=== PATIENT | male | born 1965 | race Caucasian/White ===

== ENCOUNTER 2018-04-10 20:12 | Inpatient (IN) | payer OTHER ==
[~2018-04-10] VITALS: Ht 175.3 cm; Wt 136.2 kg
[~2018-04-10 20:12] MED LIST: ASPI-817 PO; ATOR40TA68 PO; CARV6.2579 PO; CLOP75TA19 PO; CLOP75TA27 PO; FOLI-49 PO; HYDR-906 PO; IBUP-1542 PO; LISI2.5T59 PO; METF500T24 PO; TRAM50TA PO
[2018-04-10] MEDS ORDERED: SOD CHLORIDE 0.9% 1,000 ML IV SCH (22:34)
[2018-04-10] MEDS ORDERED: ACETAMINOPHEN 325 MG TAB PO PRN (23:00)
[2018-04-10] MEDS ORDERED: ONDANSETRON 4 MG INJ IV PRN (23:00)
[2018-04-10] MEDS ORDERED: GLUCOSE GEL 15 GRAM TUBE PO PRN ×2 (23:00)
[2018-04-10] MEDS ORDERED: NACL 0.9% 3 ML SYG IV SCH (23:00)
[2018-04-10] MEDS ORDERED: GLUCOSE GEL 15 GRAM TUBE BUCCAL PRN (23:00)
[2018-04-10] MEDS ORDERED: GLUCAGON 1 MG INJ IM PRN (23:00)
[2018-04-10] MEDS ORDERED: DEXTROSE 50% 50 ML SYRINGE IV PRN ×2 (23:00)
[2018-04-10] MEDS: HYDROCODONE/APAP (5/325) TAB PO PRN (23:23)
[2018-04-10] MEDS: PIPER-TAZO 3.375 GM IV (PMX) 100 ML IVPB SCH (23:55)
[2018-04-11 00:18] VITALS: Ht 175.3 cm; Wt 136.2 kg
[2018-04-11] MEDS: morphine 2 MG INJ IV PRN ×4 (00:55→17:06)
[2018-04-11] MEDS: ACCU-CHEK XX SCH (01:59)
[2018-04-11 02:05] VITALS: BP 117/55; PULSE 71; RESP 20
--- NOTE | 2018-04-11 02:17 | HP ---
Date/Time of Note Date/Time of Note DATE: 04/11/18 TIME: 02:17 Assessment/Plan VTE Prophylaxis Pharmacological prophylaxis: other Lines/Catheters IV Catheter Type (from Nrsg): Peripheral IV Assessment/Plan Hospital Course Objective Physical exam General: Patient is laying in bed and answers questions appropriately Mentation: Patient is alert and oriented 4, Head: Normocephalic atraumatic Eyes: EOMI, pupils reactive to light Neck: Supple, nontender, midline Respiratory: Clear to auscultation bilaterally Cardiovascular: regular rate, no obvious murmurs Gastrointestinal: non-tender to palpation, bowel sounds heard. Neurological: Moves all extremities spontaneously Genitourinary: Discrete mass palpated adjacent to left testicle and scrotum Assessment and plan Left scrotal abscess -Urology has been consulted, has not confirmed consult as of yet -IV antibiotic for now -per outside facility CT with iv contrast,, 6.5x2.1x3.7 cm mass Coronary artery disease -Confirmed patient med list, continue home meds, however hold aspirin in anticipation of possible surgical procedure per urology. Diabetes mellitus -Patient is only on metformin however I believe that his diabetes is not under control, A1c pending, insulin sliding scale for now Hypertension -Continue home meds Disposition -Urology consultation pending for scrotal/testicular abscess Result Diagram: 04/10/18232604/10/182326 Results 24hrs Laboratory Tests Test 04/10/18 23:27 White Blood Count 11.3 H Red Blood Count 4.61 L Hemoglobin 13.7 L Hematocrit 40.2 L Mean Corpuscular Volume 87.2 Mean Corpuscular Hemoglobin 29.7 Mean Corpuscular Hemoglobin Concent 34.1 Red Cell Distribution Width 13.7 Platelet Count 254 Mean Platelet Volume 9.9 Immature Granulocytes % 0.500 H Neutrophils % 65.7 Lymphocytes % 24.7 Monocytes % 7.2 Eosinophils % 1.5 Basophils % 0.4 Nucleated Red Blood Cells % 0.0 Immature Granulocytes # 0.060 H Neutrophils # 7.4 Lymphocytes # 2.8 Monocytes # 0.8 Eosinophils # 0.2 Basophils # 0.1 Nucleated Red Blood Cells # 0.0 Sodium Level 137 Potassium Level 3.9 Chloride Level 98 Carbon Dioxide Level 28 Anion Gap 11 Blood Urea Nitrogen 11 Creatinine 0.41 L Est Glomerular Filtrat Rate mL/min > 60 Glucose Level 299 H Calcium Level 9.0 Total Bilirubin 0.3 Direct Bilirubin 0.00 Indirect Bilirubin 0.3 Aspartate Amino Transf (AST/SGOT) 24 Alanine Aminotransferase (ALT/SGPT) 40 Alkaline Phosphatase 123 H Total Protein 6.8 Albumin 3.7 Globulin 3.10 Albumin/Globulin Ratio 1.19 HPI/ROS Admit Date/Time Admit Date/Time Apr 10, 2018 at 22:19 Hx of Present Illness Patient is a male with a past medical history significant for NM, coronary artery disease,, diabetes mellitus, dyslipidemia who presents to [facility] as a transfer from outside facility. She did went to outside facility ER due to testicular pain and was diagnosed with CT with IV contrast there with an extratesticular abscess adjacent to the left testicle. Patient states that this has been there for approximately 1 week and has been worsening. Patient states it started off as a small pimple and then continue to grow and get hard. Patient has no issues with urination at this time. The p atient does have a genetic predisposition to forming skin abscesses as he states that in his underarms he does get the occasional abscess. Patient denies chest pain, shortness of breath, nausea, vomiting, abdominal pain, leg pain PMH/Family/Social Past Medical History Medications Current Medications Sodium Chloride 1,000 ml @ 50 mls/hr Q20H IV Last administered on 04/10/18at 23:16; Admin Dose 50 MLS/HR; Start 04/10/18 at 22:34; Stop 04/11/18 at 18:33 IV Flush (NS 3 ml) 3 ml PER PROTOCOL IV ; Start 04/10/18 at 23:00 Ondansetron HCl (Zofran Inj) 4 mg Q6H PRN IV NAUSEA/VOMITING; Start 04/10/18 at 23:00 Acetaminophen (Tylenol Tab) 650 mg Q6H PRN PO .PAIN 1-3 OR TEMP; Start 04/10/18 at 23:00 Acetaminophen/ Hydrocodone Bitart ([place] (5/325)) 1 tab Q6H PRN PO .PAIN 4-6 Last administered on 04/10/18at 23:23; Admin Dose 1 TAB; Start 04/10/18 at 23:00 Morphine Sulfate (morphine) 2 mg Q4H PRN IV .PAIN 7-10 Last administered on 04/11/18at 00:55; Admin Dose 2 MG; Start 04/10/18 at 23:00 Diagnostic Test (Pha) (Accu-Chek) 1 ea 02 XX ; Start 04/11/18 at 02:00 Insulin Aspart (Novolog Insulin Pen) NOVOLOG *MILD* ALGORITHM WITH MEALS BEDTIME SC ; Start 04/11/18 at 07:50 Piperacillin Sod/ Tazobactam Sod 100 ml @ 200 mls/hr Q6 IVPB Last administered on 04/10/18at 23:55; Admin Dose 200 MLS/HR; Start 04/11/18 at 00:00 Miscellaneous Information 1 ea NOTE XX ; Start 04/10/18 at 23:00 Glucose (Glutose) 15 gm Q15M PRN PO DECREASED GLUCOSE; Start 04/10/18 at 23:00 Glucose (Glutose) 22.5 gm Q15M PRN PO DECREASED GLUCOSE; Start 04/10/18 at 23:00 Dextrose (D50w Syringe) 25 ml Q15M PRN IV DECREASED GLUCOSE; Start 04/10/18 at 23:00 Dextrose (D50w Syringe) 50 ml Q15M PRN IV DECREASED GLUCOSE; Start 04/10/18 at 23:00 Glucagon (Glucagen) 1 mg Q15M PRN IM DECREASED GLUCOSE; Start 04/10/18 at 23:00 Glucose (Glutose) 15 gm Q15M PRN BUCCAL DECREASED GLUCOSE; Start 04/10/18 at 23:00 Atorvastatin Calcium (Lipitor) 80 mg QHS PO ; Start 04/11/18 at 21:00 Carvedilol (Coreg) 6.25 mg BID PO ; Start 04/11/18 at 09:00 Lisinopril (Zestril) 5 mg DAILY PO ; Start 04/11/18 at 09:00 Coded Allergies: No Known Allergy (Unverified , 11/28/15) Exam/Review of Systems Vital Signs Vitals Intake and Output 04/10/18 04/10/18 04/11/18 1515:00 23:00 07:00 IntakeIntake Total 100 ml BalanceBalance 100 ml MOHSEN CROCKETT Apr 11, 2018 02:17
[2018-04-11] MEDS ORDERED: INSULIN ASPART [NOVOLOG] 3 ML PEN SC ONE ×2 (02:30→02:45)
[2018-04-11] MEDS: PIPER-TAZO 3.375 GM IV (PMX) 100 ML IVPB SCH ×4 (05:58→23:48)
[2018-04-11 07:11] VITALS: BP 107/57; PULSE 68; RESP 17
[2018-04-11] MEDS: INSULIN GLARGINE [LANTus] (100 UNITS/ML) SYG SC SCH ×2 (08:00→10:53)
[2018-04-11] MEDS: INSULIN ASPART [NOVOLOG] 3 ML PEN SC SCH ×7 (08:36→21:09)
[2018-04-11] MEDS: LISINOPRIL 5 MG TAB PO SCH (08:38)
[2018-04-11] MEDS ORDERED: ASPIRIN (EC) 81 MG TAB PO SCH (09:00)
[2018-04-11] MEDS: HYDROCODONE/APAP (5/325) TAB PO PRN ×3 (10:55→23:48)
--- NOTE | 2018-04-11 11:13 | CONS ---
Assessment/Plan Assessment/Plan Hospital Course (Demo Recall) 52-year-old male has been having left side scrotal pain for about a week he had a small area that was painful and gradually got bigger and became very painful so he went to the emergency room at [facility]. He underwent a scrotal ultrasound and a CT scan of the abdomen and pelvis and that showed possible abscess lateral to the left testicle. The patient was transferred to [facility] because of his insurance. Patient state he did have similar problem before and also has had similar lumps in his axilla. And other members of his family do have the same. On the exam the abscess is lateral to the left testicle. It most likely is hidradenitis versus infected sebaceous cyst. He will need this to be drained and since he has had a history of heart attack and stents placement he needs cardiology clearance. Also his diabetes is out of control and needs to be managed. I will try to schedule him for I&D tomorrow Consultation Date/Type/Reason Admit Date/Time Apr 10, 2018 at 22:19 Date of Consultation: Apr 11, 2018 Type of Consult Urology Reason for Consultation Left scrotal abscess Requesting Provider: MOHSEN CROCKETT Date/Time of Note DATE: 04/11/18 TIME: 10:57 Hx of Present Illness 52-year-old male has been having left side scrotal pain for about a week he had a small area that was painful and gradually got bigger and became very painful so he went to the emergency room at [facility]. He underwent a scrotal ultrasound and a CT scan of the abdomen and pelvis and that showed possible abscess lateral to the left testicle. The patient was transferred to [facility] because of his insurance. Patient state he did have similar problem before and also has had similar lumps in his axilla. And other members of his family do have the same. Constitutional: no complaints Eyes: no complaints ENT: no complaints Respiratory: No wheezing Cardiovascular: other (History of AK); No chest pain Gastrointestinal: no complaints Genitourinary: other (As per history of present illness); No dysuria, No hematuria Musculoskeletal: no complaints Skin: no complaints Neurologic: no complaints Endocrine: other (Diabetes) Lymphatic: no complaints Psychological: no complaints Immunologic: no complaints Past Medical History Medical History: coronary artery disease (History of AK, coronary stent at age 47 and another stent at age 46), diabetes, high cholesterol, hypertension, other (History of psoriasis and hidradenitis) Home Meds Active Scripts Hydrocodone Bit-Acetaminophen ([place]) 5-325 Mg Tablet, 1 TAB PO Q6H PRN for PAIN for 2 Days, #7 TAB 0 Refills Prov:KAYLA RUSSELL PA-C 08/05/15 Ibuprofen* (Motrin*) 600 Mg Tab, 600 MG PO Q6 for 7 Days, #30 TAB 0 Refills Prov:KAYLA RUSSELL PA-C 08/05/15 Reported Medications Atorvastatin* (Atorvastatin*) 40 Mg Tablet, 80 MG PO QHS, #30 TAB 11/27/15 Lisinopril* (Lisinopril*) 2.5 Mg Tablet, 5 MG PO DAILY, #30 TAB 11/27/15 Carvedilol* (Carvedilol*) 6.25 Mg Tablet, 6.25 MG PO BID, #60 TAB 11/27/15 Metformin Hcl* (Metformin Hcl*) 500 Mg Tablet, 500 MG PO BID, #90 TAB 11/27/15 Aspirin* (Aspirin* EC) 81 Mg Tablet.dr, 81 MG PO DAILY, TAB 11/27/15 Discontinued Reported Medications Tramadol Hcl* (Ultram*) 50 Mg Tablet, 50 MG PO BID, TAB 11/28/15 Clopidogrel Bisulfate (Clopidogrel) 75 Mg Tablet, 75 MG PO DAILY, #30 TAB 11/28/15 Folic Acid* (Folic Acid*) 1 Mg Tablet, 1 MG PO DAILY, TAB 11/27/15 Clopidogrel Bisulfate* (Clopidogrel Bisulfate*) 75 Mg Tablet, 75 MG PO DAILY, #30 TAB 11/27/15 Medications Current Medications Sodium Chloride 1,000 ml @ 50 mls/hr Q20H IV Last administered on 04/10/18at 23:16; Admin Dose 50 MLS/HR; Start 04/10/18 at 22:34; Stop 04/11/18 at 18:33 IV Flush (NS 3 ml) 3 ml PER PROTOCOL IV ; Start 04/10/18 at 23:00 Ondansetron HCl (Zofran Inj) 4 mg Q6H PRN IV NAUSEA/VOMITING; Start 04/10/18 at 23:00 Acetaminophen (Tylenol Tab) 650 mg Q6H PRN PO .PAIN 1-3 OR TEMP; Start 04/10/18 at 23:00 Acetaminophen/ Hydrocodone Bitart ([place] (5/325)) 1 tab Q6H PRN PO .PAIN 4-6 Last administered on 04/11/18at 10:55; Admin Dose 1 TAB; Start 04/10/18 at 23:00 Morphine Sulfate (morphine) 2 mg Q4H PRN IV .PAIN 7-10 Last administered on 04/11/18at 08:41; Admin Dose 2 MG; Start 04/10/18 at 23:00 Diagnostic Test (Pha) (Accu-Chek) 1 ea 02 XX ; Start 04/11/18 at 02:00 Insulin Aspart (Novolog Insulin Pen) NOVOLOG *MILD* ALGORITHM WITH MEALS BEDTIME SC Last administered on 04/11/18at 08:36; Admin Dose 5 UNIT; Start 04/11/18 at 07:50 Piperacillin Sod/ Tazobactam Sod 100 ml @ 200 mls/hr Q6 IVPB Last administered on 04/11/18at 05:58; Admin Dose 200 MLS/HR; Start 04/11/18 at 00:00 Miscellaneous Information 1 ea NOTE XX ; Start 04/10/18 at 23:00 Glucose (Glutose) 15 gm Q15M PRN PO DECREASED GLUCOSE; Start 04/10/18 at 23:00 Glucose (Glutose) 22.5 gm Q15M PRN PO DECREASED GLUCOSE; Start 04/10/18 at 23:00 Dextrose (D50w Syringe) 25 ml Q15M PRN IV DECREASED GLUCOSE; Start 04/10/18 at 23:00 Dextrose (D50w Syringe) 50 ml Q15M PRN IV DECREASED GLUCOSE; Start 04/10/18 at 23:00 Glucagon (Glucagen) 1 mg Q15M PRN IM DECREASED GLUCOSE; Start 04/10/18 at 23:00 Glucose (Glutose) 15 gm Q15M PRN BUCCAL DECREASED GLUCOSE; Start 04/10/18 at 23:00 Atorvastatin Calcium (Lipitor) 80 mg QHS PO ; Start 04/11/18 at 21:00 Carvedilol (Coreg) 6.25 mg BID PO ; Start 04/11/18 at 09:00 Lisinopril (Zestril) 5 mg DAILY PO ; Start 04/11/18 at 09:00 Insulin Glargine (Lantus) 34 units DAILY@0800 SC Last administered on 04/11/18at 10:53; Admin Dose 34 UNITS; Start 04/11/18 at 08:00 Insulin Aspart (Novolog Insulin Pen) 11 unit WITH MEALS SC Last administered on 04/11/18at 08:37; Admin Dose 11 UNIT; Start 04/11/18 at 07:50 Allergies: Coded Allergies: No Known Allergy (Unverified , 11/28/15) Past Surgical History Past Surgical Hx: other (Left knee arthroscopy) Family History Significant Family History: heart disease Social History Alcohol Use: none Smoking Status: Never smoker Drug Use: none Exam/Review of Systems Exam Vitals Vital Signs Date Temp Pulse Resp B/P (MAP) Pulse Ox O2 O2 Flow FiO2 Time Delivery Rate 04/11/18 97.7 68 17 107/57 99 Room Air 07:11 (74) Intake and Output 04/10/18 04/10/18 04/11/18 1515:00 23:00 07:00 IntakeIntake Total 1100 ml OutputOutput Total 503 ml BalanceBalance 597 ml Constitutional: alert, oriented Psych: no complaints Head: normocephalic Eyes: nl conjunctiva ENMT: nl external ears & nose Neck: supple, non-tender Respiratory: normal air movement; No wheezing Cardiovascular: No jugular venous distention (JVD) Gastrointestinal: soft, other (Obese) Genitourinary - Male: nl penis, other (Both testes are normal, the mass is lateral to the left testicle and has fluctuation toward the perineal area. It appears like an infected sebaceous cyst.) Musculoskeletal: nl extremities to inspection Extremities: No calf tenderness Neurological: nl mental status Skin: nl turgor Results Result Diagram: 04/11/18 04304/11/18 0432 Results 24hrs Laboratory Tests Test 04/10/18 23:27 04/11/18 02:11 04/11/18 02:31 04/11/18 04:32 White Blood Count 11.3 H 10.9 H Red Blood Count 4.61 L 4.29 L Hemoglobin 13.7 L 12.7 L Hematocrit 40.2 L 37.9 L Mean Corpuscular 87.2 88.3 Volume Mean Corpuscular 29.7 29.6 Hemoglobin Mean Corpuscular 34.1 33.5 Hemoglobin Concent Red Cell 13.7 13.6 Distribution Width Platelet Count 254 248 Mean Platelet Volume 9.9 10.3 Immature 0.500 H 0.600 H Granulocytes % Neutrophils % 65.7 67.3 Lymphocytes % 24.7 23.6 Monocytes % 7.2 6.7 Eosinophils % 1.5 1.3 Basophils % 0.4 0.5 Nucleated Red Blood 0.0 0.0 Cells % Immature 0.060 H 0.070 H Granulocytes # Neutrophils # 7.4 7.3 Lymphocytes # 2.8 2.6 Monocytes # 0.8 0.7 Eosinophils # 0.2 0.1 Basophils # 0.1 0.1 Nucleated Red Blood 0.0 0.0 Cells # Sodium Level 137 136 Potassium Level 3.9 3.7 Chloride Level 98 102 Carbon Dioxide Level 28 27 Anion Gap 11 7 Blood Urea Nitrogen 11 12 Creatinine 0.41 L 0.42 L Est Glomerular > 60 > 60 Filtrat Rate mL/min Glucose Level 299 H 393 H 322 H Calcium Level 9.0 8.7 Total Bilirubin 0.3 0.1 L Direct Bilirubin 0.00 0.00 Indirect Bilirubin 0.3 0.1 Aspartate Amino 24 24 Transf (AST/SGOT) Alanine 40 35 Aminotransferase (AL T/SGPT) Alkaline Phosphatase 123 H 123 H Total Protein 6.8 5.9 L Albumin 3.7 3.1 L Globulin 3.10 2.80 Albumin/Globulin 1.19 1.10 Ratio Bedside Glucose 386 H Hemoglobin A1c 11.5 H Magnesium Level 1.8 Test 04/11/18 08:15 Bedside Glucose [address] scan of the abdomen and pelvis with IV contrast: No evidence of urolithiasis ,no evidence of obstructive uropathy ,diverticulitis or appendicitis. 6.5 x 2.1 x 3.7 cm extra testicular collection left taylor-scrotum compatible with abscess. Medications Medication Current Medications Sodium Chloride 1,000 ml @ 50 mls/hr Q20H IV Last administered on 04/10/18at 23:16; Admin Dose 50 MLS/HR; Start 04/10/18 at 22:34; Stop 04/11/18 at 18:33 IV Flush (NS 3 ml) 3 ml PER PROTOCOL IV ; Start 04/10/18 at 23:00 Ondansetron HCl (Zofran Inj) 4 mg Q6H PRN IV NAUSEA/VOMITING; Start 04/10/18 at 23:00 Acetaminophen (Tylenol Tab) 650 mg Q6H PRN PO .PAIN 1-3 OR TEMP; Start 04/10/18 at 23:00 Acetaminophen/ Hydrocodone Bitart ([place] (5/325)) 1 tab Q6H PRN PO .PAIN 4-6 Last administered on 04/11/18at 10:55; Admin Dose 1 TAB; Start 04/10/18 at 23:00 Morphine Sulfate (morphine) 2 mg Q4H PRN IV .PAIN 7-10 Last administered on 04/11/18at 08:41; Admin Dose 2 MG; Start 04/10/18 at 23:00 Diagnostic Test (Pha) (Accu-Chek) 1 ea 02 XX ; Start 04/11/18 at 02:00 Insulin Aspart (Novolog Insulin Pen) NOVOLOG *MILD* ALGORITHM WITH MEALS BEDTIME SC Last administered on 04/11/18at 08:36; Admin Dose 5 UNIT; Start 04/11/18 at 07:50 Piperacillin Sod/ Tazobactam Sod 100 ml @ 200 mls/hr Q6 IVPB Last administered on 04/11/18at 05:58; Admin Dose 200 MLS/HR; Start 04/11/18 at 00:00 Miscellaneous Information 1 ea NOTE XX ; Start 04/10/18 at 23:00 Glucose (Glutose) 15 gm Q15M PRN PO DECREASED GLUCOSE; Start 04/10/18 at 23:00 Glucose (Glutose) 22.5 gm Q15M PRN PO DECREASED GLUCOSE; Start 04/10/18 at 23:00 Dextrose (D50w Syringe) 25 ml Q15M PRN IV DECREASED GLUCOSE; Start 04/10/18 at 23:00 Dextrose (D50w Syringe) 50 ml Q15M PRN IV DECREASED GLUCOSE; Start 04/10/18 at 23:00 Glucagon (Glucagen) 1 mg Q15M PRN IM DECREASED GLUCOSE; Start 04/10/18 at 23:00 Glucose (Glutose) 15 gm Q15M PRN BUCCAL DECREASED GLUCOSE; Start 04/10/18 at 23:00 Atorvastatin Calcium (Lipitor) 80 mg QHS PO ; Start 04/11/18 at 21:00 Carvedilol (Coreg) 6.25 mg BID PO ; Start 04/11/18 at 09:00 Lisinopril (Zestril) 5 mg DAILY PO ; Start 04/11/18 at 09:00 Insulin Glargine (Lantus) 34 units DAILY@0800 SC Last administered on 04/11/18at 10:53; Admin Dose 34 UNITS; Start 04/11/18 at 08:00 Insulin Aspart (Novolog Insulin Pen) 11 unit WITH MEALS SC Last administered on 04/11/18at 08:37; Admin Dose 11 UNIT; Start 04/11/18 at 07:50 GEN BERMUDEZ MD Apr 11, 2018 11:10
[2018-04-11 14:38] VITALS: BP 123/59; PULSE 72; RESP 17
--- NOTE | 2018-04-11 16:09 | CONS ---
Assessment/Plan Assessment/Plan Hospital Course (Demo Recall) Cardiovascular preop evaluation Coronary artery disease with history of [place] 3 years ago History of PCI 3 years ago Hypertension Diabetes Obesity Dyslipidemia Scrotal abscess Recommendations: Continue with the current cardiac care No further cardiac workup would be indicated. Based on the history that obtained from the patient patient will be considered at low risk of cardiovascular event for his a scrotal I&D Diabetic management as per internal medicine. Antibiotic management as per internal medicine Thank you for his referral. We will continue to follow along with you until or associates return on Thursday KARIE MALONEY MD FAC Consultation Date/Type/Reason Admit Date/Time Apr 10, 2018 at 22:19 Date of Consultation: Apr 11, 2018 Type of Consult Cardiology Reason for Consultation CV PREOP Requesting Provider: ARNAUD HANSON Date/Time of Note DATE: 04/11/18 TIME: 16:04 Hx of Present Illness Interventional cardiology consultation note Chief complaint: Testicular pain Reason for consult: Cardiovascular preop evaluation, coronary artery disease History of present illness: Thank you for this referral. History was obtained from the patient discussion with his discussion with the staff and physicians. This is a pleasant 52-year-old gentleman with history of diabetes hypertension dyslipidemia history of myocardial infarction 3 years ago status post PCI who was transferred to our facility for insurance reason because of his scrotal abscess. Patient has been evaluated by urology and is in need of I&D of his abscess. With his past cardiac history cardiovascular preop evaluation was requested. Patient said that he is normally followed regularly by . He said he had a stress test on a month ago in which was told he is normal and he needs to come back in 6 months. Is unable to walk much over the past week because of the pain in his groin. However prior to that he said he was able to walk 3-4 blocks with no chest pain or pressure at this point denies any chest pain or pressure to me. Allergies: No known drug allergies Medications were reviewed as per medical reconciliation sheet Family history: Denies any coronary artery disease Social history: Does not smoke now Past medical history: See above Review of system: Patient denies all others except for above-mentioned Past Medical History Home Meds Active Scripts Hydrocodone Bit-Acetaminophen ([place]) 5-325 Mg Tablet, 1 TAB PO Q6H PRN for PAIN for 2 Days, #7 TAB 0 Refills Prov:KAYLA RUSSELL PA-C 08/05/15 Ibuprofen* (Motrin*) 600 Mg Tab, 600 MG PO Q6 for 7 Days, #30 TAB 0 Refills Prov:KAYLA RUSSELL PA-C 08/05/15 Reported Medications Atorvastatin* (Atorvastatin*) 40 Mg Tablet, 80 MG PO QHS, #30 TAB 11/27/15 Lisinopril* (Lisinopril*) 2.5 Mg Tablet, 5 MG PO DAILY, #30 TAB 11/27/15 Carvedilol* (Carvedilol*) 6.25 Mg Tablet, 6.25 MG PO BID, #60 TAB 11/27/15 Metformin Hcl* (Metformin Hcl*) 500 Mg Tablet, 500 MG PO BID, #90 TAB 11/27/15 Aspirin* (Aspirin* EC) 81 Mg Tablet.dr, 81 MG PO DAILY, TAB 11/27/15 Discontinued Reported Medications Tramadol Hcl* (Ultram*) 50 Mg Tablet, 50 MG PO BID, TAB 11/28/15 Clopidogrel Bisulfate (Clopidogrel) 75 Mg Tablet, 75 MG PO DAILY, #30 TAB 11/28/15 Folic Acid* (Folic Acid*) 1 Mg Tablet, 1 MG PO DAILY, TAB 11/27/15 Clopidogrel Bisulfate* (Clopidogrel Bisulfate*) 75 Mg Tablet, 75 MG PO DAILY, #30 TAB 11/27/15 Medications Current Medications Sodium Chloride 1,000 ml @ 50 mls/hr Q20H IV Last administered on 04/10/18at 23:16; Admin Dose 50 MLS/HR; Start 04/10/18 at 22:34; Stop 04/11/18 at 18:33 IV Flush (NS 3 ml) 3 ml PER PROTOCOL IV ; Start 04/10/18 at 23:00 Ondansetron HCl (Zofran Inj) 4 mg Q6H PRN IV NAUSEA/VOMITING; Start 04/10/18 at 23:00 Acetaminophen (Tylenol Tab) 650 mg Q6H PRN PO .PAIN 1-3 OR TEMP; Start 04/10/18 at 23:00 Acetaminophen/ Hydrocodone Bitart ([place] (5/325)) 1 tab Q6H PRN PO .PAIN 4-6 Last administered on 04/11/18at 10:55; Admin Dose 1 TAB; Start 04/10/18 at 23:00 Morphine Sulfate (morphine) 2 mg Q4H PRN IV .PAIN 7-10 Last administered on 04/11/18at 12:52; Admin Dose 2 MG; Start 04/10/18 at 23:00 Diagnostic Test (Pha) (Accu-Chek) 1 ea 02 XX ; Start 04/11/18 at 02:00 Insulin Aspart (Novolog Insulin Pen) NOVOLOG *MILD* ALGORITHM WITH MEALS BEDTIME SC Last administered on 04/11/18at 12:56; Admin Dose 4 UNIT; Start 04/11/18 at 07:50 Piperacillin Sod/ Tazobactam Sod 100 ml @ 200 mls/hr Q6 IVPB Last administered on 04/11/18at 12:57; Admin Dose 200 MLS/HR; Start 04/11/18 at 00:00 Miscellaneous Information 1 ea NOTE XX ; Start 04/10/18 at 23:00 Glucose (Glutose) 15 gm Q15M PRN PO DECREASED GLUCOSE; Start 04/10/18 at 23:00 Glucose (Glutose) 22.5 gm Q15M PRN PO DECREASED GLUCOSE; Start 04/10/18 at 23:00 Dextrose (D50w Syringe) 25 ml Q15M PRN IV DECREASED GLUCOSE; Start 04/10/18 at 23:00 Dextrose (D50w Syringe) 50 ml Q15M PRN IV DECREASED GLUCOSE; Start 04/10/18 at 23:00 Glucagon (Glucagen) 1 mg Q15M PRN IM DECREASED GLUCOSE; Start 04/10/18 at 23:00 Glucose (Glutose) 15 gm Q15M PRN BUCCAL DECREASED GLUCOSE; Start 04/10/18 at 23:00 Atorvastatin Calcium (Lipitor) 80 mg QHS PO ; Start 04/11/18 at 21:00 Carvedilol (Coreg) 6.25 mg BID PO ; Start 04/11/18 at 09:00 Lisinopril (Zestril) 5 mg DAILY PO ; Start 04/11/18 at 09:00 Insulin Glargine (Lantus) 34 units DAILY@0800 SC Last administered on 04/11/18at 10:53; Admin Dose 34 UNITS; Start 04/11/18 at 08:00 Insulin Aspart (Novolog Insulin Pen) 11 unit WITH MEALS SC Last administered on 04/11/18at 12:57; Admin Dose 11 UNIT; Start 04/11/18 at 07:50 Allergies: Coded Allergies: No Known Allergy (Unverified , 11/28/15) Past Surgical History Past Surgical Hx: other (Left knee arthroscopy) Social History Alcohol Use: none Smoking Status: Never smoker Drug Use: none Exam/Review of Systems Vital Signs Vitals Vital Signs Date Temp Pulse Resp B/P (MAP) Pulse Ox O2 O2 Flow FiO2 Time Delivery Rate 04/11/18 97.9 72 17 123/59 96 Room Air 14:38 (80) Intake and Output 04/10/18 04/10/18 04/11/18 1515:00 23:00 07:00 IntakeIntake Total 1100 ml OutputOutput Total 503 ml BalanceBalance 597 ml Exam Exam General: Obese gentleman no acute distress HEENT: NC/AT. pupils are equal. round. NECK: NO JVD. no stridor. CV: RRR. systolic murmur; no gallop or rubs. PULM: no wheezing or rhonchi. GI: SOFT, NT, ND, no rebound or guarding Extremity: trace B/L LE edema. no clubbing. neuro: awake and alert, OX3. Psych: calm and pleasant rectal: deferred : + Tenderness and abscess on the scrotum EKG normal sinus rhythm normal ECG Labs Result Diagram: 04/11/18 0432 04/11/18 0432 Results 24hrs Laboratory Tests Test 04/10/18 23:27 04/11/18 02:11 04/11/18 02:31 04/11/18 04:32 White Blood Count 11.3 H 10.9 H Red Blood Count 4.61 L 4.29 L Hemoglobin 13.7 L 12.7 L Hematocrit 40.2 L 37.9 L Mean Corpuscular 87.2 88.3 Volume Mean Corpuscular 29.7 29.6 Hemoglobin Mean Corpuscular 34.1 33.5 Hemoglobin Concent Red Cell 13.7 13.6 Distribution Width Platelet Count 254 248 Mean Platelet Volume 9.9 10.3 Immature 0.500 H 0.600 H Granulocytes % Neutrophils % 65.7 67.3 Lymphocytes % 24.7 23.6 Monocytes % 7.2 6.7 Eosinophils % 1.5 1.3 Basophils % 0.4 0.5 Nucleated Red Blood 0.0 0.0 Cells % Immature 0.060 H 0.070 H Granulocytes # Neutrophils # 7.4 7.3 Lymphocytes # 2.8 2.6 Monocytes # 0.8 0.7 Eosinophils # 0.2 0.1 Basophils # 0.1 0.1 Nucleated Red Blood 0.0 0.0 Cells # Sodium Level 137 136 Potassium Level 3.9 3.7 Chloride Level 98 102 Carbon Dioxide Level 28 27 Anion Gap 11 7 Blood Urea Nitrogen 11 12 Creatinine 0.41 L 0.42 L Est Glomerular > 60 > 60 Filtrat Rate mL/min Glucose Level 299 H 393 H 322 H Calcium Level 9.0 8.7 Total Bilirubin 0.3 0.1 L Direct Bilirubin 0.00 0.00 Indirect Bilirubin 0.3 0.1 Aspartate Amino 24 24 Transf (AST/SGOT) Alanine 40 35 Aminotransferase (AL T/SGPT) Alkaline Phosphatase 123 H 123 H Total Protein 6.8 5.9 L Albumin 3.7 3.1 L Globulin 3.10 2.80 Albumin/Globulin 1.19 1.10 Ratio Bedside Glucose 386 H Hemoglobin A1c 11.5 H Magnesium Level 1.8 Test 04/11/18 08:15 04/11/18 12:30 04/11/18 12:50 Bedside Glucose 349 H 277 H Prothrombin Time 14.9 Prothrombin Time 1.2 Ratio INR International 1.16 Normalized Ratio Activated 30.8 Partial Thromboplast Time Medications Medications Current Medications Sodium Chloride 1,000 ml @ 50 mls/hr Q20H IV Last administered on 04/10/18at 23:16; Admin Dose 50 MLS/HR; Start 04/10/18 at 22:34; Stop 04/11/18 at 18:33 IV Flush (NS 3 ml) 3 ml PER PROTOCOL IV ; Start 04/10/18 at 23:00 Ondansetron HCl (Zofran Inj) 4 mg Q6H PRN IV NAUSEA/VOMITING; Start 04/10/18 at 23:00 Acetaminophen (Tylenol Tab) 650 mg Q6H PRN PO .PAIN 1-3 OR TEMP; Start 04/10/18 at 23:00 Acetaminophen/ Hydrocodone Bitart ([place] (5/325)) 1 tab Q6H PRN PO .PAIN 4-6 Last administered on 04/11/18at 10:55; Admin Dose 1 TAB; Start 04/10/18 at 23:00 Morphine Sulfate (morphine) 2 mg Q4H PRN IV .PAIN 7-10 Last administered on 04/11/18at 12:52; Admin Dose 2 MG; Start 04/10/18 at 23:00 Diagnostic Test (Pha) (Accu-Chek) 1 ea 02 XX ; Start 04/11/18 at 02:00 Insulin Aspart (Novolog Insulin Pen) NOVOLOG *MILD* ALGORITHM WITH MEALS BEDTIME SC Last administered on 04/11/18at 12:56; Admin Dose 4 UNIT; Start 04/11/18 at 07:50 Piperacillin Sod/ Tazobactam Sod 100 ml @ 200 mls/hr Q6 IVPB Last administered on 04/11/18at 12:57; Admin Dose 200 MLS/HR; Start 04/11/18 at 00:00 Miscellaneous Information 1 ea NOTE XX ; Start 04/10/18 at 23:00 Glucose (Glutose) 15 gm Q15M PRN PO DECREASED GLUCOSE; Start 04/10/18 at 23:00 Glucose (Glutose) 22.5 gm Q15M PRN PO DECREASED GLUCOSE; Start 04/10/18 at 23 :00 Dextrose (D50w Syringe) 25 ml Q15M PRN IV DECREASED GLUCOSE; Start 04/10/18 at 23:00 Dextrose (D50w Syringe) 50 ml Q15M PRN IV DECREASED GLUCOSE; Start 04/10/18 at 23:00 Glucagon (Glucagen) 1 mg Q15M PRN IM DECREASED GLUCOSE; Start 04/10/18 at 23:00 Glucose (Glutose) 15 gm Q15M PRN BUCCAL DECREASED GLUCOSE; Start 04/10/18 at 23:00 Atorvastatin Calcium (Lipitor) 80 mg QHS PO ; Start 04/11/18 at 21:00 Carvedilol (Coreg) 6.25 mg BID PO ; Start 04/11/18 at 09:00 Lisinopril (Zestril) 5 mg DAILY PO ; Start 04/11/18 at 09:00 Insulin Glargine (Lantus) 34 units DAILY@0800 SC Last administered on 04/11/18at 10:53; Admin Dose 34 UNITS; Start 04/11/18 at 08:00 Insulin Aspart (Novolog Insulin Pen) 11 unit WITH MEALS SC Last administered on 04/11/18at 12:57; Admin Dose 11 UNIT; Start 04/11/18 at 07:50 KARIE MALONEY MD Apr 11, 2018 16:09
--- NOTE | 2018-04-11 16:22 | PN ---
Date/Time of Note Date/Time of Note DATE: 04/11/18 TIME: 16:20 Assessment/Plan VTE Prophylaxis Risk score (from Ns)>0 risk: 1 SCD applied (from Ns): Yes Pharmacological prophylaxis: NA/contraindicated Pharm contraindication: surgical contra Lines/Catheters [facility]from [facility] Peripheral IV Urinary Cath still in place: No Assessment/Plan Hospital Course Left scrotal abscess -Urology consultation appreciated, plan is for I&D tomorrow -IV antibiotic for now -per outside facility CT with iv contrast,, 6.5x2.1x3.7 cm mass -Cardiology consultation obtained for clearance, patient deemed low risk for an I&D Coronary artery disease -Confirmed patient med list, continue home meds, however hold aspirin in anticipation of possible surgical procedure per urology. Diabetes mellitus -Patient is only on metformin however I believe that his diabetes is not under control, A1c pending, insulin sliding scale for now Hypertension -Continue home meds Prophylaxis: SCDs Result Diagram: 04/11/182 04/11/18 0432 Results 24hrs Laboratory Tests Test 04/10/18 23:27 04/11/18 02:11 04/11/18 02:31 04/11/18 04:32 White Blood Count 11.3 H 10.9 H Red Blood Count 4.61 L 4.29 L Hemoglobin 13.7 L 12.7 L Hematocrit 40.2 L 37.9 L Mean Corpuscular 87.2 88.3 Volume Mean Corpuscular 29.7 29.6 Hemoglobin Mean Corpuscular 34.1 33.5 Hemoglobin Concent Red Cell 13.7 13.6 Distribution Width Platelet Count 254 248 Mean Platelet Volume 9.9 10.3 Immature 0.500 H 0.600 H Granulocytes % Neutrophils % 65.7 67.3 Lymphocytes % 24.7 23.6 Monocytes % 7.2 6.7 Eosinophils % 1.5 1.3 Basophils % 0.4 0.5 Nucleated Red Blood 0.0 0.0 Cells % Immature 0.060 H 0.070 H Granulocytes # Neutrophils # 7.4 7.3 Lymphocytes # 2.8 2.6 Monocytes # 0.8 0.7 Eosinophils # 0.2 0.1 Basophils # 0.1 0.1 Nucleated Red Blood 0.0 0.0 Cells # Sodium Level 137 136 Potassium Level 3.9 3.7 Chloride Level 98 102 Carbon Dioxide Level 28 27 Anion Gap 11 7 Blood Urea Nitrogen 11 12 Creatinine 0.41 L 0.42 L Est Glomerular > 60 > 60 Filtrat Rate mL/min Glucose Level 299 H 393 H 322 H Calcium Level 9.0 8.7 Total Bilirubin 0.3 0.1 L Direct Bilirubin 0.00 0.00 Indirect Bilirubin 0.3 0.1 Aspartate Amino 24 24 Transf (AST/SGOT) Alanine 40 35 Aminotransferase (AL T/SGPT) Alkaline Phosphatase 123 H 123 H Total Protein 6.8 5.9 L Albumin 3.7 3.1 L Globulin 3.10 2.80 Albumin/Globulin 1.19 1.10 Ratio Bedside Glucose 386 H Hemoglobin A1c 11.5 H Magnesium Level 1.8 Test 04/11/18 08:15 04/11/18 12:30 04/11/18 12:50 Bedside Glucose 349 H 277 H Prothrombin Time 14.9 Prothrombin Time 1.2 Ratio INR International 1.16 Normalized Ratio Activated 30.8 Partial Thromboplast Time Subjective 24 Hr Interval Summary Constitutional: no complaints Exam/Review of Systems Exam Vitals Vital Signs Date Temp Pulse Resp B/P (MAP) Pulse Ox O2 O2 Flow FiO2 Time Delivery Rate 04/11/18 97.9 72 17 123/59 96 Room Air 14:38 (80) Intake and Output 04/10/18 04/10/18 04/11/18 1515:00 23:00 07:00 IntakeIntake Total 1100 ml OutputOutput Total 503 ml BalanceBalance 597 ml Constitutional: alert, oriented Respiratory: clear to auscultation Cardiovascular: regular rate and rhythm Gastrointestinal: soft; No distended Musculoskeletal: nl extremities to inspection Results Results 24hrs Laboratory Tests Test 04/10/18 23:27 04/11/18 02:11 04/11/18 02:31 04/11/18 04:32 White Blood Count 11.3 H 10.9 H Red Blood Count 4.61 L 4.29 L Hemoglobin 13.7 L 12.7 L Hematocrit 40.2 L 37.9 L Mean Corpuscular 87.2 88.3 Volume Mean Corpuscular 29.7 29.6 Hemoglobin Mean Corpuscular 34.1 33.5 Hemoglobin Concent Red Cell 13.7 13.6 Distribution Width Platelet Count 254 248 Mean Platelet Volume 9.9 10.3 Immature 0.500 H 0.600 H Granulocytes % Neutrophils % 65.7 67.3 Lymphocytes % 24.7 23.6 Monocytes % 7.2 6.7 Eosinophils % 1.5 1.3 Basophils % 0.4 0.5 Nucleated Red Blood 0.0 0.0 Cells % Immature 0.060 H 0.070 H Granulocytes # Neutrophils # 7.4 7.3 Lymphocytes # 2.8 2.6 Monocytes # 0.8 0.7 Eosinophils # 0.2 0.1 Basophils # 0.1 0.1 Nucleated Red Blood 0.0 0.0 Cells # Sodium Level 137 136 Potassium Level 3.9 3.7 Chloride Level 98 102 Carbon Dioxide Level 28 27 Anion Gap 11 7 Blood Urea Nitrogen 11 12 Creatinine 0.41 L 0.42 L Est Glomerular > 60 > 60 Filtrat Rate mL/min Glucose Level 299 H 393 H 322 H Calcium Level 9.0 8.7 Total Bilirubin 0.3 0.1 L Direct Bilirubin 0.00 0.00 Indirect Bilirubin 0.3 0.1 Aspartate Amino 24 24 Transf (AST/SGOT) Alanine 40 35 Aminotransferase (AL T/SGPT) Alkaline Phosphatase 123 H 123 H Total Protein 6.8 5.9 L Albumin 3.7 3.1 L Globulin 3.10 2.80 Albumin/Globulin 1.19 1.10 Ratio Bedside Glucose 386 H Hemoglobin A1c 11.5 H Magnesium Level 1.8 Test 04/11/18 08:15 04/11/18 12:30 04/11/18 12:50 Bedside Glucose 349 H 277 H Prothrombin Time 14.9 Prothrombin Time 1.2 Ratio INR International 1.16 Normalized Ratio Activated 30.8 Partial Thromboplast Time Medications Medication Current Medications Sodium Chloride 1,000 ml @ 50 mls/hr Q20H IV Last administered on 04/10/18at 23:16; Admin Dose 50 MLS/HR; Start 04/10/18 at 22:34; Stop 04/11/18 at 18:33 IV Flush (NS 3 ml) 3 ml PER PROTOCOL IV ; Start 04/10/18 at 23:00 Ondansetron HCl (Zofran Inj) 4 mg Q6H PRN IV NAUSEA/VOMITING; Start 04/10/18 at 23:00 Acetaminophen (Tylenol Tab) 650 mg Q6H PRN PO .PAIN 1-3 OR TEMP; Start 04/10/18 at 23:00 Acetaminophen/ Hydrocodone Bitart ([place] (5/325)) 1 tab Q6H PRN PO .PAIN 4-6 Last administered on 04/11/18at 10:55; Admin Dose 1 TAB; Start 04/10/18 at 23:00 Morphine Sulfate (morphine) 2 mg Q4H PRN IV .PAIN 7-10 Last administered on 04/11/18at 12:52; Admin Dose 2 MG; Start 04/10/18 at 23:00 Diagnostic Test (Pha) (Accu-Chek) 1 ea 02 XX ; Start 04/11/18 at 02:00 Insulin Aspart (Novolog Insulin Pen) NOVOLOG *MILD* ALGORITHM WITH MEALS BEDTIME SC Last administered on 04/11/18at 12:56; Admin Dose 4 UNIT; Start 04/11/18 at 07:50 Piperacillin Sod/ Tazobactam Sod 100 ml @ 200 mls/hr Q6 IVPB Last administered on 04/11/18at 12:57; Admin Dose 200 MLS/HR; Start 04/11/18 at 00:00 Miscellaneous Information 1 ea NOTE XX ; Start 04/10/18 at 23:00 Glucose (Glutose) 15 gm Q15M PRN PO DECREASED GLUCOSE; Start 04/10/18 at 23:00 Glucose (Glutose) 22.5 gm Q15M PRN PO DECREASED GLUCOSE; Start 04/10/18 at 23:00 Dextrose (D50w Syringe) 25 ml Q15M PRN IV DECREASED GLUCOSE; Start 04/10/18 at 23:00 Dextrose (D50w Syringe) 50 ml Q15M PRN IV DECREASED GLUCOSE; Start 04/10/18 at 23:00 Glucagon (Glucagen) 1 mg Q15M PRN IM DECREASED GLUCOSE; Start 04/10/18 at 23:00 Glucose (Glutose) 15 gm Q15M PRN BUCCAL DECREASED GLUCOSE; Start 04/10/18 at 23:00 Atorvastatin Calcium (Lipitor) 80 mg QHS PO ; Start 04/11/18 at 21:00 Carvedilol (Coreg) 6.25 mg BID PO ; Start 04/11/18 at 09:00 Lisinopril (Zestril) 5 mg DAILY PO ; Start 04/11/18 at 09:00 Insulin Glargine (Lantus) 34 units DAILY@0800 SC Last administered on 04/11/18at 10:53; Admin Dose 34 UNITS; Start 04/11/18 at 08:00 Insulin Aspart (Novolog Insulin Pen) 11 unit WITH MEALS SC Last administered on 04/11/18at 12:57; Admin Dose 11 UNIT; Start 04/11/18 at 07:50 ARNAUD HANSON Apr 11, 2018 16:22
[2018-04-11 20:12] VITALS: BP 128/59; PULSE 77; RESP 18
[2018-04-11] MEDS: SOD CHLORIDE 0.9% 1,000 ML IV SCH (20:47)
[2018-04-11] MEDS: ATORVASTATIN 40 MG TAB PO SCH (20:48)
[2018-04-11] MEDS: morphine 4 MG/ML VIAL IV PRN (20:50)
[2018-04-12] VITALS (20 sets, daily range): BP systolic 97–160; BP diastolic 50–85; PULSE 60–74; RESP 14–25
[2018-04-12] MEDS: ACCU-CHEK XX SCH (02:06)
[2018-04-12] MEDS: morphine 4 MG/ML VIAL IV PRN ×4 (04:25→11:34)
[2018-04-12] MEDS: PIPER-TAZO 3.375 GM IV (PMX) 100 ML IVPB SCH ×4 (05:40→23:30)
--- NOTE | 2018-04-12 07:45 | CONS ---
Assessment/Plan Assessment/Plan Assessment/Plan (Daily) Cardiovascular preop evaluation Coronary artery disease with history of [place] 3 years ago History of PCI 3 years ago Hypertension Diabetes Obesity Dyslipidemia Scrotal abscess Recommendations: Continue with the current cardiac care No further cardiac workup would be indicated. Based on the history that obtained from the patient patient will be considered at low risk of cardiovascular event for his a scrotal I&D Diabetic management as per internal medicine. Antibiotic management as per internal medicine Consultation Date/Type/Reason Admit Date/Time Apr 10, 2018 at 22:19 Initial Consult Date 04/11/18 Type of Consult Cardiology Requesting Provider: ARNAUD HANSON Date/Time of Note DATE: 04/12/18 TIME: 07:44 24 HR Interval Summary Free Text/Dictation The patient doing well Exam/Review of Systems Vital Signs Vitals Vital Signs Date Temp Pulse Resp B/P (MAP) Pulse Ox O2 O2 Flow FiO2 Time Delivery Rate 04/12/18 97.7 63 18 97/50 (66) 94 Room Air 07:20 Intake and Output 04/11/18 04/11/18 04/12/18 1414:59 22:59 06:59 IntakeIntake Total 750 ml 930 ml 630 ml OutputOutput Total 300 ml 950 ml BalanceBalance 450 ml 930 ml -320 ml Labs Result Diagram: 04/12/18 0452 04/12/18 0452 Results 24hrs Laboratory Tests Test 04/11/18 08:15 04/11/18 12:30 04/11/18 12:50 04/11/18 17:37 Bedside Glucose 349 H 277 H 282 H Prothrombin Time 14.9 Prothrombin Time 1.2 Ratio INR International 1.16 Normalized Ratio Activated 30.8 Partial Thromboplast Time Test 04/11/18 21:02 04/12/18 02:00 04/12/18 04:52 04/12/18 05:39 Bedside Glucose 308 H 335 H 304 H White Blood Count 9.5 Red Blood Count 4.29 L Hemoglobin 12.7 L Hematocrit 38.3 L Mean Corpuscular 89.3 Volume Mean Corpuscular 29.6 Hemoglobin Mean Corpuscular 33.2 Hemoglobin Concent Red Cell 13.4 Distribution Width Platelet Count 251 Mean Platelet Volume 10.2 Immature 0.600 H Granulocytes % Neutrophils % 63.9 Lymphocytes % 26.4 Monocytes % 7.2 Eosinophils % 1.4 Basophils % 0.5 Nucleated Red Blood 0.0 Cells % Immature 0.060 H Granulocytes # Neutrophils # 6.1 Lymphocytes # 2.5 Monocytes # 0.7 Eosinophils # 0.1 Basophils # 0.1 Nucleated Red Blood 0.0 Cells # Sodium Level 138 Potassium Level 3.8 Chloride Level 104 Carbon Dioxide Level 27 Anion Gap 7 Blood Urea Nitrogen 12 Creatinine 0.39 L Est Glomerular > 60 Filtrat Rate mL/min Glucose Level 299 H Calcium Level 8.7 Magnesium Level 1.9 Medications Medications Current Medications IV Flush (NS 3 ml) 3 ml PER PROTOCOL IV ; Start 04/10/18 at 23:00 Ondansetron HCl (Zofran Inj) 4 mg Q6H PRN IV NAUSEA/VOMITING; Start 04/10/18 at 23:00 Acetaminophen (Tylenol Tab) 650 mg Q6H PRN PO .PAIN 1-3 OR TEMP; Start 04/10/18 at 23:00 Acetaminophen/ Hydrocodone Bitart ([place] (5/325)) 1 tab Q6H PRN PO .PAIN 4-6 Last administered on 04/11/18at 23:48; Admin Dose 1 TAB; Start 04/10/18 at 23:00 Diagnostic Test (Pha) (Accu-Chek) 1 ea 02 XX Last administered on 04/12/18at 02:06; Admin Dose 1 EA; Start 04/11/18 at 02:00 Insulin Aspart (Novolog Insulin Pen) NOVOLOG *MILD* ALGORITHM WITH MEALS BEDTIME SC Last administered on 04/11/18at 21:09; Admin Dose 4 UNIT; Start 04/11/18 at 07:50 Piperacillin Sod/ Tazobactam Sod 100 ml @ 200 mls/hr Q6 IVPB Last administered on 04/12/18at 05:40; Admin Dose 200 MLS/HR; Start 04/11/18 at 00:00 Miscellaneous Information 1 ea NOTE XX ; Start 04/10/18 at 23:00 Glucose (Glutose) 15 gm Q15M PRN PO DECREASED GLUCOSE; Start 04/10/18 at 23:00 Glucose (Glutose) 22.5 gm Q15M PRN PO DECREASED GLUCOSE; Start 04/10/18 at 23:00 Dextrose (D50w Syringe) 25 ml Q15M PRN IV DECREASED GLUCOSE; Start 04/10/18 at 23:00 Dextrose (D50w Syringe) 50 ml Q15M PRN IV DECREASED GLUCOSE; Start 04/10/18 at 23:00 Glucagon (Glucagen) 1 mg Q15M PRN IM DECREASED GLUCOSE; Start 04/10/18 at 23:00 Glucose (Glutose) 15 gm Q15M PRN BUCCAL DECREASED GLUCOSE; Start 04/10/18 at 23:00 Atorvastatin Calcium (Lipitor) 80 mg QHS PO Last administered on 04/11/18at 20:48; Admin Dose 80 MG; Start 04/11/18 at 21:00 Carvedilol (Coreg) 6.25 mg BID PO Last administered on 04/11/18at 21:00; Admin Dose 6.25 MG; Start 04/11/18 at 09:00 Lisinopril (Zestril) 5 mg DAILY PO ; Start 04/11/18 at 09:00 Insulin Glargine (Lantus) 34 units DAILY@0800 SC Last administered on 04/11/18at 10:53; Admin Dose 34 UNITS; Start 04/11/18 at 08:00 Insulin Aspart (Novolog Insulin Pen) 11 unit WITH MEALS SC Last administered on 04/11/18 18:05; Admin Dose 11 UNIT; Start 04/11/18 at 07:50 Morphine Sulfate (morphine) 4 mg Q3H PRN IV .PAIN 7-10 Last administered on 04/12/18 04:25; Admin Dose 4 MG; Start 04/11/18 at 20:00 Sodium Chloride 1,000 ml @ 50 mls/hr Q20H IV Last administered on 04/11/18at 20:47; Admin Dose 50 MLS/HR; Start 04/11/18 at 20:00 LILIANE ESPINO MD Apr 12, 2018 07:45
[2018-04-12] MEDS: INSULIN ASPART [NOVOLOG] 3 ML PEN SC SCH ×7 (07:50→21:00)
[2018-04-12] MEDS: LISINOPRIL 5 MG TAB PO SCH (09:00)
[2018-04-12] MEDS: INSULIN GLARGINE [LANTus] (100 UNITS/ML) SYG SC SCH (09:02)
--- NOTE | 2018-04-12 12:03 | PN ---
Date/Time of Note Date/Time of Note DATE: 04/12/18 TIME: 12:02 Assessment/Plan VTE Prophylaxis Risk score (from Ns)>0 risk: 2 SCD applied (from Ns): Yes Pharmacological prophylaxis: NA/contraindicated Pharm contraindication: surgical contra Lines/Catheters IV Catheter Type (from Nrs): Peripheral IV Urinary Cath still in place: No Assessment/Plan Hospital Course Left scrotal abscess -Urology consultation appreciated, plan is for I&D today -IV antibiotics for now -per outside facility CT with iv contrast,, 6.5x2.1x3.7 cm mass -Cardiology consultation obtained for clearance, patient deemed low risk for an I&D -Pain control Coronary artery disease -Confirmed patient med list, continue home meds, however hold aspirin in anticipation of possible surgical procedure per urology. Diabetes mellitus -Patient is only on metformin however I believe that his diabetes is not under control, A1c pending, insulin sliding scale for now Hypertension -Continue home meds Prophylaxis: SCDs Result Diagram: 04/12/18 0452 04/12/18 0452 Results 24hrs Laboratory Tests Test 04/11/18 12:30 04/11/18 12:50 04/11/18 17:37 04/11/18 21:02 Prothrombin Time 14.9 Prothrombin Time 1.2 Ratio INR International 1.16 Normalized Ratio Activated 30.8 Partial Thromboplast Time Bedside Glucose 277 H 282 H 308 H Test 04/12/18 02:00 04/12/18 04:52 04/12/18 05:39 04/12/18 08:36 Bedside Glucose 335 H 304 H 303 H White Blood Count 9.5 Red Blood Count 4.29 L Hemoglobin 12.7 L Hematocrit 38.3 L Mean Corpuscular 89.3 Volume Mean Corpuscular 29.6 Hemoglobin Mean Corpuscular 33.2 Hemoglobin Concent Red Cell 13.4 Distribution Width Platelet Count 251 Mean Platelet Volume 10.2 Immature 0.600 H Granulocytes % Neutrophils % 63.9 Lymphocytes % 26.4 Monocytes % 7.2 Eosinophils % 1.4 Basophils % 0.5 Nucleated Red Blood 0.0 Cells % Immature 0.060 H Granulocytes # Neutrophils # 6.1 Lymphocytes # 2.5 Monocytes # 0.7 Eosinophils # 0.1 Basophils # 0.1 Nucleated Red Blood 0.0 Cells # Sodium Level 138 Potassium Level 3.8 Chloride Level 104 Carbon Dioxide Level 27 Anion Gap 7 Blood Urea Nitrogen 12 Creatinine 0.39 L Est Glomerular > 60 Filtrat Rate mL/min Glucose Level 299 H Calcium Level 8.7 Magnesium Level 1.9 Test 04/12/18 11:39 Bedside Glucose 254 H Subjective 24 Hr Interval Summary Genitourinary: other (Scrotal pain) Exam/Review of Systems Exam Vitals Vital Signs Date Temp Pulse Resp B/P (MAP) Pulse Ox O2 O2 Flow FiO2 Time Delivery Rate 04/12/18 97.7 63 18 97/50 (66) 94 Room Air 07:20 Intake and Output 04/11/18 04/11/18 04/12/18 1515:00 23:00 07:00 IntakeIntake Total 750 ml 930 ml 630 ml OutputOutput Total 300 ml 950 ml BalanceBalance 450 ml 930 ml -320 ml Constitutional: alert, oriented Respiratory: clear to auscultation Cardiovascular: regular rate and rhythm Gastrointestinal: soft; No distended Musculoskeletal: nl extremities to inspection Results Results 24hrs Laboratory Tests Test 04/11/18 12:30 04/11/18 12:50 04/11/18 17:37 04/11/18 21:02 Prothrombin Time 14.9 Prothrombin Time 1.2 Ratio INR International 1.16 Normalized Ratio Activated 30.8 Partial Thromboplast Time Bedside Glucose 277 H 282 H 308 H Test 04/12/18 02:00 04/12/18 04:52 04/12/18 05:39 04/12/18 08:36 Bedside Glucose 335 H 304 H 303 H White Blood Count 9.5 Red Blood Count 4.29 L Hemoglobin 12.7 L Hematocrit 38.3 L Mean Corpuscular 89.3 Volume Mean Corpuscular 29.6 Hemoglobin Mean Corpuscular 33.2 Hemoglobin Concent Red Cell 13.4 Distribution Width Platelet Count 251 Mean Platelet Volume 10.2 Immature 0.600 H Granulocytes % Neutrophils % 63.9 Lymphocytes % 26.4 Monocytes % 7.2 Eosinophils % 1.4 Basophils % 0.5 Nucleated Red Blood 0.0 Cells % Immature 0.060 H Granulocytes # Neutrophils # 6.1 Lymphocytes # 2.5 Monocytes # 0.7 Eosinophils # 0.1 Basophils # 0.1 Nucleated Red Blood 0.0 Cells # Sodium Level 138 Potassium Level 3.8 Chloride Level 104 Carbon Dioxide Level 27 Anion Gap 7 Blood Urea Nitrogen 12 Creatinine 0.39 L Est Glomerular > 60 Filtrat Rate mL/min Glucose Level 299 H Calcium Level 8.7 Magnesium Level 1.9 Test 04/12/18 11:39 Bedside Glucose 254 H Medications Medication Current Medications IV Flush (NS 3 ml) 3 ml PER PROTOCOL IV ; Start 04/10/18 at 23:00 Ondansetron HCl (Zofran Inj) 4 mg Q6H PRN IV NAUSEA/VOMITING; Start 04/10/18 at 23:00 Acetaminophen (Tylenol Tab) 650 mg Q6H PRN PO .PAIN 1-3 OR TEMP; Start 04/10/18 at 23:00 Acetaminophen/ Hydrocodone Bitart ([place] (5/325)) 1 tab Q6H PRN PO .PAIN 4-6 Last administered on 04/11/18at 23:48; Admin Dose 1 TAB; Start 04/10/18 at 23:00 Diagnostic Test (Pha) (Accu-Chek) 1 ea 02 XX Last administered on 04/12/18at 02:06; Admin Dose 1 EA; Start 04/11/18 at 02:00 Insulin Aspart (Novolog Insulin Pen) NOVOLOG *MILD* ALGORITHM WITH MEALS BEDTIME SC Last administered on 04/12/18at 11:47; Admin Dose 3 UNIT; Start 04/11/18 at 07:50 Piperacillin Sod/ Tazobactam Sod 100 ml @ 200 mls/hr Q6 IVPB Last administered on 04/12/18at 11:46; Admin Dose 200 MLS/HR; Start 04/11/18 at 00:00 Miscellaneous Information 1 ea NOTE XX ; Start 04/10/18 at 23:00 Glucose (Glutose) 15 gm Q15M PRN PO DECREASED GLUCOSE; Start 04/10/18 at 23:00 Glucose (Glutose) 22.5 gm Q15M PRN PO DECREASED GLUCOSE; Start 04/10/18 at 23:00 Dextrose (D50w Syringe) 25 ml Q15M PRN IV DECREASED GLUCOSE; Start 04/10/18 at 23:00 Dextrose (D50w Syringe) 50 ml Q15M PRN IV DECREASED GLUCOSE; Start 04/10/18 at 23:00 Glucagon (Glucagen) 1 mg Q15M PRN IM DECREASED GLUCOSE; Start 04/10/18 at 23:00 Glucose (Glutose) 15 gm Q15M PRN BUCCAL DECREASED GLUCOSE; Start 04/10/18 at 23:00 Atorvastatin Calcium (Lipitor) 80 mg QHS PO Last administered on 04/11/18 20:48; Admin Dose 80 MG; Start 04/11/18 at 21:00 Carvedilol (Coreg) 6.25 mg BID PO Last administered on 04/11/18 21:00; Admin Dose 6.25 MG; Start 04/11/18 at 09:00 Lisinopril (Zestril) 5 mg DAILY PO ; Start 04/11/18 at 09:00 Insulin Glargine (Lantus) 34 units DAILY@0800 SC Last administered on 04/12/18 09:02; Admin Dose 34 UNITS; Start 04/11/18 at 08:00 Insulin Aspart (Novolog Insulin Pen) 11 unit WITH MEALS SC Last administered on 04/11/18 18:05; Admin Dose 11 UNIT; Start 04/11/18 at 07:50 Morphine Sulfate (morphine) 4 mg Q3H PRN IV .PAIN 7-10 Last administered on 04/12/18 11:34; Admin Dose 4 MG; Start 04/11/18 at 20:00 Sodium Chloride 1,000 ml @ 50 mls/hr Q20H IV Last administered on 04/11/18 20:47; Admin Dose 50 MLS/HR; Start 04/11/18 at 20:00 ARNAUD HANSON Apr 12, 2018 12:03
[2018-04-12] MEDS: HYDROmorphONE 1 MG/ML SYG IV PRN ×2 (14:18→23:29)
[2018-04-12] MEDS: SOD CHLORIDE 0.9% 1,000 ML IV SCH (16:00)
--- NOTE | 2018-04-12 17:30 | HPN ---
Date/Time of Note Date/Time of Note DATE: 04/12/18 TIME: 17:29 Interval H&P Admission Note Pt. seen H&P reviewed: No system changes GEN BERMUDEZ MD Apr 12, 2018 17:30
--- NOTE | 2018-04-12 17:32 | PREAC ---
Date/Time of Note Date/Time of Note DATE: 04/12/18 TIME: 17:29 Anesthesia Eval and Record Evaluation Time Pre-Procedure Interview DATE: 04/12/18 TIME: 17:29 Age 52 Sex male NPO: 8 hrs Preoperative diagnosis Lt Scrotal abscess Planned procedure I&D lt scrotal abscess Past Medical History Past Medical History: Includes Cardio: HTN, Dyslipidemia Endo: Diabetes GI: Morbid obesity Surgery & Anesthesia Issues No known issue Meds Anticoagulation: Yes Beta Po within 24 hr: No Reason Beta Po not given: Pt. not on B-Po Active Scripts Hydrocodone Bit-Acetaminophen ([place]) 5-325 Mg Tablet, 1 TAB PO Q6H PRN for PAIN for 2 Days, #7 TAB 0 Refills Prov:KAYLA RUSSELL PA-C 08/05/15 Ibuprofen* (Motrin*) 600 Mg Tab, 600 MG PO Q6 for 7 Days, #30 TAB 0 Refills Prov:KAYLA RUSSELL PA-C 08/05/15 Reported Medications Atorvastatin* (Atorvastatin*) 40 Mg Tablet, 80 MG PO QHS, #30 TAB 11/27/15 Lisinopril* (Lisinopril*) 2.5 Mg Tablet, 5 MG PO DAILY, #30 TAB 11/27/15 Carvedilol* (Carvedilol*) 6.25 Mg Tablet, 6.25 MG PO BID, #60 TAB 11/27/15 Metformin Hcl* (Metformin Hcl*) 500 Mg Tablet, 500 MG PO BID, #90 TAB 11/27/15 Aspirin* (Aspirin* EC) 81 Mg Tablet.dr, 81 MG PO DAILY, TAB 11/27/15 Discontinued Reported Medications Tramadol Hcl* (Ultram*) 50 Mg Tablet, 50 MG PO BID, TAB 11/28/15 Clopidogrel Bisulfate (Clopidogrel) 75 Mg Tablet, 75 MG PO DAILY, #30 TAB 11/28/15 Folic Acid* (Folic Acid*) 1 Mg Tablet, 1 MG PO DAILY, TAB 11/27/15 Clopidogrel Bisulfate* (Clopidogrel Bisulfate*) 75 Mg Tablet, 75 MG PO DAILY, #30 TAB 11/27/15 Current Medications IV Flush (NS 3 ml) 3 ml PER PROTOCOL IV ; Start 04/10/18 at 23:00 Ondansetron HCl (Zofran Inj) 4 mg Q6H PRN IV NAUSEA/VOMITING; Start 04/10/18 at 23:00 Acetaminophen (Tylenol Tab) 650 mg Q6H PRN PO .PAIN 1-3 OR TEMP; Start 04/10/18 at 23:00 Acetaminophen/ Hydrocodone Bitart ([place] (5/325)) 1 tab Q6H PRN PO .PAIN 4-6 Last administered on 04/11/18at 23:48; Admin Dose 1 TAB; Start 04/10/18 at 23:00 Diagnostic Test (Pha) (Accu-Chek) 1 ea 02 XX Last administered on 04/12/18at 02:06; Admin Dose 1 EA; Start 04/11/18 at 02:00 Insulin Aspart (Novolog Insulin Pen) NOVOLOG *MILD* ALGORITHM WITH MEALS BEDTIM E SC Last administered on 04/12/18at 11:47; Admin Dose 3 UNIT; Start 04/11/18 at 07:50 Piperacillin Sod/ Tazobactam Sod 100 ml @ 200 mls/hr Q6 IVPB Last administered on 04/12/18at 11:46; Admin Dose 200 MLS/HR; Start 04/11/18 at 00:00 Miscellaneous Information 1 ea NOTE XX ; Start 04/10/18 at 23:00 Glucose (Glutose) 15 gm Q15M PRN PO DECREASED GLUCOSE; Start 04/10/18 at 23:00 Glucose (Glutose) 22.5 gm Q15M PRN PO DECREASED GLUCOSE; Start 04/10/18 at 23:00 Dextrose (D50w Syringe) 25 ml Q15M PRN IV DECREASED GLUCOSE; Start 04/10/18 at 23:00 Dextrose (D50w Syringe) 50 ml Q15M PRN IV DECREASED GLUCOSE; Start 04/10/18 at 23:00 Glucagon (Glucagen) 1 mg Q15M PRN IM DECREASED GLUCOSE; Start 04/10/18 at 23:00 Glucose (Glutose) 15 gm Q15M PRN BUCCAL DECREASED GLUCOSE; Start 04/10/18 at 23:00 Atorvastatin Calcium (Lipitor) 80 mg QHS PO Last administered on 04/11/18at 20:48; Admin Dose 80 MG; Start 04/11/18 at 21:00 Carvedilol (Coreg) 6.25 mg BID PO Last administered on 04/11/18at 21:00; Admin Dose 6.25 MG; Start 04/11/18 at 09:00 Lisinopril (Zestril) 5 mg DAILY PO ; Start 04/11/18 at 09:00 Sodium Chloride 1,000 ml @ 50 mls/hr Q20H IV Last administered on 04/11/18at 20:47; Admin Dose 50 MLS/HR; Start 04/11/18 at 20:00 Insulin Aspart (Novolog Insulin Pen) 12 unit WITH MEALS SC ; Start 04/12/18 at 17:55 Insulin Glargine (Lantus) 40 units DAILY@0800 SC ; Start 04/13/18 at 08:00 Hydromorphone HCl (Dilaudid) 1 mg Q3H PRN IV SEVERE PAIN LEVEL 7-10 Last administered on 04/12/18at 14:18; Admin Dose 1 MG; Start 04/12/18 at 14:00 Meds reviewed: Yes Allergies Coded Allergies: No Known Allergy (Unverified , 11/28/15) Allergies Reviewed: Yes Labs/Studies Labs Reviewed: Reviewed by anesthesiologist Result Diagram: 04/12/18 0452 04/12/182 Laboratory Tests 04/12/18 04:52 test: N/A Studies: ECG Pre-procedure Exam Last vitals Vital Signs Date Temp Pulse Resp B/P (MAP) Pulse Ox O2 O2 Flow FiO2 Time Delivery Rate 04/12/18 97.7 65 18 125/58 95 15:59 (80) 04/12/18 Room Air 07:20 Airway: Adequate mouth opening, Adequate thyromental dist Mallampati: Mallampati III Teeth: Normal Lung: Normal Heart: Normal ASA Physical Status ASA physical status: 3 Emergency: None Planned Anesthetic General/MAC: LMA Planned Pain Management Parenteral pain med Pre-operative Attestations Prior to commencing anesthesia and surgery, the patient was re-evaluated, there was verification of: *The patient's identity *The results of appropriate recent lab work and preoperative vital signs *The above evaluation not changing prior to induction *Anesthetic plan, risk benefits, alternative and complications discussed with patient/family; questions answered; patient/family understands, accepts and wishes to proceed. EDGARDO NINO MD Apr 12, 2018 17:32
[2018-04-12] MEDS ORDERED: MIDAZOLAM 1 MG/ML 2 ML INJ ONE (17:38)
[2018-04-12] MEDS ORDERED: PROPOFOL 20 ML ONE (18:11)
[2018-04-12] MEDS ORDERED: ONDANSETRON 4 MG INJ ONE (18:11)
[2018-04-12] MEDS ORDERED: ETOMIDATE 20 MG INJ ONE (18:11)
[2018-04-12] MEDS ORDERED: LIDOCAINE 2% (SDV) 5 ML INJ ONE (18:11)
--- NOTE | 2018-04-12 18:29 | PAC ---
Date/Time of Note Date/Time of Note DATE: 04/12/18 TIME: 18:28 Post-Anesthesia Notes Post-Anesthesia Note Last documented vital signs Vital Signs Date Temp Pulse Resp B/P (MAP) Pulse Ox O2 O2 Flow FiO2 Time Delivery Rate 04/12/18 97.7 65 18 125/58 95 15:59 (80) 04/12/18 Room Air 07:20 Activity: WNL Respiratory function: WNL Cardiovascular function: WNL Mental status: Baseline Pain reasonably controlled: Yes Hydration appropriate: Yes Nausea/Vomiting absent: Yes Comments BP:145/67, P:68, spo2:100%, T:98,8 EDGARDO NINO MD Apr 12, 2018 18:29
[2018-04-12] MEDS ORDERED: METOCLOPRAMIDE 10 MG INJ IV PRN (18:30)
[2018-04-12] MEDS ORDERED: HYDROmorphONE 1 MG/5 ML IV SYRINGE IV PRN ×2 (18:30)
[2018-04-12] MEDS ORDERED: DIPHENHYDRAMINE 50 MG INJ IV PRN (18:30)
[2018-04-12] MEDS ORDERED: hydrALAzine 20 MG INJ IV PRN (18:30)
[2018-04-12] MEDS ORDERED: ONDANSETRON 4 MG INJ IV PRN (18:30)
[2018-04-12] MEDS ORDERED: LABETALOL HCL 20MG INJ IV PRN (18:30)
[2018-04-12] MEDS ORDERED: FENTAnyl 50 MCG/ML VIAL IV PRN (18:30)
[2018-04-12] MEDS ORDERED: MEPERIDINE 25 MG INJ IV PRN (18:30)
--- NOTE | 2018-04-12 18:30 | OPR ---
Date/Time of Note Date/Time of Note DATE: 04/12/18 TIME: 18:24 Operative Report Procedure Date: Apr 12, 2018 Preoperative Diagnosis Left side scrotal abscess Postoperative Diagnosis Same Operation/Procedure Performed Incision and drainage of left side scrotal abscess Surgeon see signature line [employer] Attorney Dimitry Verdin Anesthesia Type: general Anesthesiologist: EDGARDO NINO MD Estimated Blood Loss: minimal Transfusion none Specimen Sanguinopurulent fluid from the abscess for culture and sensitivity. Total volume aspirated about 60 mL Grafts/Implants none Complications none Pt Condition Post Procedure: stable Disposition: PACU Indications Left side scrotal abscess Procedure Description The patient was brought to the operating room and general anesthesia was induced. The patient was positioned in the lithotomy position. He has been already on antibiotics so no additional antibiotic was given. Timeout was done and the patient was identified by his name, birthdate, the procedure and the site of the procedure. Before the patient was prepped a used a 16-gauge needle with a 30 cc syringe and aspirated sanguinopurulent material from the abscess and later on aspirated another 30 mL and send them all for culture and sensitivity. The genital area, upper thighs and pubic area were all prepped and draped in the usual sterile manner. An incision was made along the long axis of the abscess and then the abscess was debrided and the bleeders were electrocoagulated then the abscess cavity was packed with Kerlix. The packing was held in place by putting 3 sutures of 3-0 Vicryl interrupted. The wound was then covered with 4 x 4's and that was held in place with the fenestrated underwear. The patient was transferred to the recovery room in a stable and satisfactory condition. GEN BERMUDEZ MD Apr 12, 2018 18:30
[2018-04-12] MEDS: ATORVASTATIN 40 MG TAB PO SCH (20:19)
[2018-04-13 00:32] VITALS: BP 146/64; PULSE 71; RESP 18
[2018-04-13] MEDS: ACCU-CHEK XX SCH (02:00)
[2018-04-13] MEDS: SOD CHLORIDE 0.9% 1,000 ML IV SCH ×2 (03:56→12:00)
[2018-04-13] MEDS: HYDROmorphONE 1 MG/ML SYG IV PRN ×5 (04:37→21:17)
[2018-04-13 04:47] VITALS: BP 82/48; PULSE 64; RESP 18
[2018-04-13] MEDS: PIPER-TAZO 3.375 GM IV (PMX) 100 ML IVPB SCH ×3 (05:55→18:18)
[2018-04-13 07:31] VITALS: BP 128/62; RESP 19
--- NOTE | 2018-04-13 07:59 | CONS ---
Consult Date/Type/Reason Admit Date/Time Apr 10, 2018 at 22:19 Initial Consult Date 04/11/18 Type of Consultation: Urology Reason for Consultation Left side scrotal abscess Requesting Provider: ARNAUD HANSON Date/Time of Note DATE: 04/13/18 TIME: 07:56 Subjective Patient complains of pain Objective Vitals Vital Signs Date Temp Pulse Resp B/P (MAP) Pulse Ox O2 O2 Flow FiO2 Time Delivery Rate 04/13/18 98.7 19 128/62 96 07:31 (84) 04/13/18 64 04:47 04/12/18 Nasal 2.0 19:24 Cannula Intake and Output 04/12/18 04/12/18 04/13/18 1515:00 23:00 07:00 IntakeIntake Total 100 ml 1640 ml 450 ml OutputOutput Total 712 ml BalanceBalance 100 ml 928 ml 450 ml Exam The old packing was removed, there was some bleeding and a new packing was put in Results/Medications Result Diagram: 04/13/181 04/13/18 0441 Results 24 hrs Laboratory Tests Test 04/12/18 08:36 04/12/18 11:39 04/12/18 16:18 04/12/18 19:14 Bedside Glucose 303 H 254 H 195 153 Test 04/12/18 20:17 04/13/18 04:41 Bedside Glucose 157 White Blood Count 9.7 Red Blood Count 4.40 L Hemoglobin 13.1 L Hematocrit 39.2 L Mean Corpuscular 89.1 Volume Mean Corpuscular 29.8 Hemoglobin Mean Corpuscular 33.4 Hemoglobin Concent Red Cell 13.6 Distribution Width Platelet Count 286 Mean Platelet Volume 10.4 Immature 0.600 H Granulocytes % Neutrophils % 67.0 Lymphocytes % 23.9 Monocytes % 6.6 Eosinophils % 1.4 Basophils % 0.5 Nucleated Red Blood 0.0 Cells % Immature 0.060 H Granulocytes # Neutrophils # 6.5 Lymphocytes # 2.3 Monocytes # 0.6 Eosinophils # 0.1 Basophils # 0.1 Nucleated Red Blood 0.0 Cells # Sodium Level 138 Potassium Level 4.2 Chloride Level 101 Carbon Dioxide Level 26 Anion Gap 11 Blood Urea Nitrogen 10 Creatinine 0.42 L Est Glomerular > 60 Filtrat Rate mL/min Glucose Level 277 H Calcium Level 8.8 Magnesium Level 1.9 Home Meds Active Scripts Hydrocodone Bit-Acetaminophen ([place]) 5-325 Mg Tablet, 1 TAB PO Q6H PRN for PAIN for 2 Days, #7 TAB 0 Refills Prov:KAYLA RUSSELL PA-C 08/05/15 Ibuprofen* (Motrin*) 600 Mg Tab, 600 MG PO Q6 for 7 Days, #30 TAB 0 Refills Prov:YVONNEKAYLA FAJARDO 08/05/15 Reported Medications Atorvastatin* (Atorvastatin*) 40 Mg Tablet, 80 MG PO QHS, #30 TAB 11/27/15 Lisinopril* (Lisinopril*) 2.5 Mg Tablet, 5 MG PO DAILY, #30 TAB 11/27/15 Carvedilol* (Carvedilol*) 6.25 Mg Tablet, 6.25 MG PO BID, #60 TAB 11/27/15 Metformin Hcl* (Metformin Hcl*) 500 Mg Tablet, 500 MG PO BID, #90 TAB 11/27/15 Aspirin* (Aspirin* EC) 81 Mg Tablet.dr, 81 MG PO DAILY, TAB 11/27/15 Discontinued Reported Medications Tramadol Hcl* (Ultram*) 50 Mg Tablet, 50 MG PO BID, TAB 11/28/15 Clopidogrel Bisulfate (Clopidogrel) 75 Mg Tablet, 75 MG PO DAILY, #30 TAB 11/28/15 Folic Acid* (Folic Acid*) 1 Mg Tablet, 1 MG PO DAILY, TAB 11/27/15 Clopidogrel Bisulfate* (Clopidogrel Bisulfate*) 75 Mg Tablet, 75 MG PO DAILY, #30 TAB 11/27/15 Medications Current Medications IV Flush (NS 3 ml) 3 ml PER PROTOCOL IV ; Start 04/10/18 at 23:00 Ondansetron HCl (Zofran Inj) 4 mg Q6H PRN IV NAUSEA/VOMITING; Start 04/10/18 at 23:00 Acetaminophen (Tylenol Tab) 650 mg Q6H PRN PO .PAIN 1-3 OR TEMP Last administered on 04/12/18at 21:22; Admin Dose 650 MG; Start 04/10/18 at 23:00 Acetaminophen/ Hydrocodone Bitart ([place] (5/325)) 1 tab Q6H PRN PO .PAIN 4-6 Last administered on 04/11/18at 23:48; Admin Dose 1 TAB; Start 04/10/18 at 23:00 Diagnostic Test (Pha) (Accu-Chek) 1 ea 02 XX Last administered on 04/12/18at 02:06; Admin Dose 1 EA; Start 04/11/18 at 02:00 Insulin Aspart (Novolog Insulin Pen) NOVOLOG *MILD* ALGORITHM WITH MEALS BEDTIME SC Last administered on 04/12/18at 11:47; Admin Dose 3 UNIT; Start 04/11/18 at 07:50 Piperacillin Sod/ Tazobactam Sod 100 ml @ 200 mls/hr Q6 IVPB Last administered on 04/13/18at 05:55; Admin Dose 200 MLS/HR; Start 04/11/18 at 00:00 Miscellaneous Information 1 ea NOTE XX ; Start 04/10/18 at 23:00 Glucose (Glutose) 15 gm Q15M PRN PO DECREASED GLUCOSE; Start 04/10/18 at 23:00 Glucose (Glutose) 22.5 gm Q15M PRN PO DECREASED GLUCOSE; Start 04/10/18 at 23:00 Dextrose (D50w Syringe) 25 ml Q15M PRN IV DECREASED GLUCOSE; Start 04/10/18 at 23:00 Dextrose (D50w Syringe) 50 ml Q15M PRN IV DECREASED GLUCOSE; Start 04/10/18 at 23:00 Glucagon (Glucagen) 1 mg Q15M PRN IM DECREASED GLUCOSE; Start 04/10/18 at 23:00 Glucose (Glutose) 15 gm Q15M PRN BUCCAL DECREASED GLUCOSE; Start 04/10/18 at 23:00 Atorvastatin Calcium (Lipitor) 80 mg QHS PO Last administered on 04/12/18at 20:19; Admin Dose 80 MG; Start 04/11/18 at 21:00 Carvedilol (Coreg) 6.25 mg BID PO Last administered on 04/12/18at 20:21; Admin Dose 6.25 MG; Start 04/11/18 at 09:00 Lisinopril (Zestril) 5 mg DAILY PO ; Start 04/11/18 at 09:00 Sodium Chloride 1,000 ml @ 50 mls/hr Q20H IV Last administered on 04/13/18at 03:56; Admin Dose 50 MLS/HR; Start 04/11/18 at 20:00 Insulin Aspart (Novolog Insulin Pen) 12 unit WITH MEALS SC ; Start 04/12/18 at 17:55 Insulin Glargine (Lantus) 40 units DAILY@0800 SC ; Start 04/13/18 at 08:00 Hydromorphone HCl (Dilaudid) 1 mg Q3H PRN IV SEVERE PAIN LEVEL 7-10 Last administered on 04/13/18at 07:55; Admin Dose 1 MG; Start 04/12/18 at 14:00 Assessment/Plan Hospital Course (Demo Recall) 52-year-old male has been having left side scrotal pain for about a week he had a small area that was painful and gradually got bigger and became very painful so he went to the emergency room at [facility]. He underwent a scrotal ultrasound and a CT scan of the abdomen and pelvis and that showed possible abscess lateral to the left testicle. The patient was transferred to [facility] because of his insurance. Patient underwent incision and drainage of the abscess on April 12, 2018. I did change the packing today. He still has a lot of pain from doing that. He will need the packing changed every 6 hours. Will do it today here and if his w sharon come in teach her how to do it for him at home so he may be discharged home tomorrow. Hopefully by then we will also have the results of the culture. GEN BERMUDEZ MD Apr 13, 2018 07:59
--- NOTE | 2018-04-13 08:02 | RADRPT ---
Echocardiogram Report [facility] [id number] : 1965 (52y 11m)Study Date: 04/12/2018 8:49:24 AM Gender: Júniorcession #: [id number] Tech: [id number] Location: Ref.Physician: ARNAUD HANSON Height(Cm): BSA: Weight(Kg): Quality: GoodAccount #: Procedures: Echocardiographic Report: Transthoracic echocardiogram with complete 2D, M-Mode, and doppler examination. Indications: Pre-op. Measurements: 2D/M Mode Doppler Measurement Value Normal Range Measurement Value Normal Range LVIDd 2D 4.7 [ 4.2 - 5.8 ] cm SMITA Vmax 2.3 [ 2.0 - 4.0 ] cm2 LVIDs 2D 3.0 [ 2.5 - 4.0 ] cm AV Mean [place] 1.2 [ 70.0 - 90.0 ] cm/sec LVPWd 2D 1.3 [ 0.6 - 1.0 ] cm AV Mean PG 6.0 [ 2.0 - 4.0 ] mmHg IVSd 2D 1.3 [ 0.6 - 1.0 ] cm AV Peak [place] 1.7 [ 100.0 - 170.0 ] cm/sec IVS/LVPW 2D 1.0 ratio AV Peak PG 12.0 [ 2.0 - 9.0 ] mmHg LA Dimen 2D 4.3 [ 3.0 - 4.0 ] cm AV VTI 33.0 cm LVOT Diam 2.1 [ 2.3 - 2.9 ] cm LVOT Peak [place] 1.1 [ 70.0 - 110.0 ] cm/sec LVOT Area 3.5 cm2 LVOT Peak PG 5.0 [ 2.0 - 6.0 ] mmHg MV E Peak [place] 1.0 [ 60.0 - 130.0 ] cm/sec MV A Peak [place] 0.7 [ 100.0 - 120.0 ] cm/sec MV E/A 1.6 [ 0.8 - 1.5 ] ratio MV Decel Time 218 [ 104 - 258 ] msec Lat E` Benito 0.1 [ 10.0 - 15.0 ] cm/sec Med E` Benito 0.1 cm/sec MV E/A 1.6 [ 0.8 - 1.5 ] ratio PV Peak Benito 0.8 [ 40.0 - 80.0 ] cm/sec PV Peak PG 3.0 mmHg Findings: Left Ventricle: Normal left ventricular systolic function. Mild concentric left ventricular hypertrophy. Ejection fraction is visually estimated at 60-65 %. Tissue Doppler/Mitral Doppler indices are within normal limits. Right Ventricle: Normal right ventricular size. Normal right ventricular systolic function. Left Atrium: There is mild enlargement of left atrium. Right Atrium: The right atrium is normal in size. Atrial Septum: Normal atrial septum. Mitral Valve: Normal appearance of the mitral valve. Trace mitral regurgitation. Aortic Valve: Normal appearance of the aortic valve. No significant aortic stenosis or insufficiency. No hemodynamically significant aortic stenosis by doppler. Trace aortic valve regurgitation. Tricuspid Valve: Normal appearance and function of the tricuspid valve with trace physiologic regurgitation. Unable to obtain RVSP due to minimal presence of tricuspid regurgitation. There is trace tricuspid regurgitation. Pulmonic Valve: Normal pulmonic valve appearance. No evidence of pulmonic regurgitation. Pericardium: Normal pericardium with no significant pericardial effusion. Aorta: Normal aortic root. IVC: Normal size and normal respiratory collapse consistent with normal right atrial pressure. Conclusions: Normal left ventricular systolic function. Mild concentric left ventricular hypertrophy. Ejection fraction is visually estimated at 60-65 %. Tissue Doppler/Mitral Doppler indices are within normal limits. s. Normal appearance of the mitral valve. Trace mitral regurgitation. Normal appearance of the aortic valve. No significant aortic stenosis or insufficiency. No hemodynamically significant aortic stenosis by doppler. Trace aortic valve regurgitation. Normal appearance and function of the tricuspid valve with trace physiologic regurgitation. Unable to obtain RVSP due to minimal presence of tricuspid regurgitation. There is trace tricuspid regurgitation. Electronically Signed By: Rickey Mills 2018-04-13 08:01:14 PST
--- NOTE | 2018-04-13 08:06 | CONS ---
Assessment/Plan Assessment/Plan Assessment/Plan (Daily) s/p Scrotal abscess I&D Coronary artery disease with history of KS 3 years ago History of PCI 3 years ago Hypertension Diabetes Obesity Dyslipidemia Recommendations: Continue with the current cardiac care No further cardiac workup would be indicated. care Diabetic management as per internal medicine. Antibiotic management as per internal medicine Consultation Date/Type/Reason Admit Date/Time Apr 10, 2018 at 22:19 Initial Consult Date 04/11/18 Type of Consult Cardiology Requesting Provider: ARNAUD HANSON Date/Time of Note DATE: 04/13/18 TIME: 08:05 24 HR Interval Summary Free Text/Dictation The patient doing well post gu precedure Exam/Review of Systems Vital Signs Vitals Vital Signs Date Temp Pulse Resp B/P (MAP) Pulse Ox O2 O2 Flow FiO2 Time Delivery Rate 04/13/18 98.7 19 128/62 96 07:31 (84) 04/13/18 64 04:47 04/12/18 Nasal 2.0 19:24 Cannula Intake and Output 04/12/18 04/12/18 04/13/18 1515:00 23:00 07:00 IntakeIntake Total 100 ml 1640 ml 450 ml OutputOutput Total 712 ml BalanceBalance 100 ml 928 ml 450 ml Labs Result Diagram: 04/13/18 0441 04/13/18 0441 Results 24hrs Laboratory Tests Test 04/12/18 08:36 04/12/18 11:39 04/12/18 16:18 04/12/18 19:14 Bedside Glucose 303 H 254 H 195 153 Test 04/12/18 20:17 04/13/18 04:41 Bedside Glucose 157 White Blood Count 9.7 Red Blood Count 4.40 L Hemoglobin 13.1 L Hematocrit 39.2 L Mean Corpuscular 89.1 Volume Mean Corpuscular 29.8 Hemoglobin Mean Corpuscular 33.4 Hemoglobin Concent Red Cell 13.6 Distribution Width Platelet Count 286 Mean Platelet Volume 10.4 Immature 0.600 H Granulocytes % Neutrophils % 67.0 Lymphocytes % 23.9 Monocytes % 6.6 Eosinophils % 1.4 Basophils % 0.5 Nucleated Red Blood 0.0 Cells % Immature 0.060 H Granulocytes # Neutrophils # 6.5 Lymphocytes # 2.3 Monocytes # 0.6 Eosinophils # 0.1 Basophils # 0.1 Nucleated Red Blood 0.0 Cells # Sodium Level 138 Potassium Level 4.2 Chloride Level 101 Carbon Dioxide Level 26 Anion Gap 11 Blood Urea Nitrogen 10 Creatinine 0.42 L Est Glomerular > 60 Filtrat Rate mL/min Glucose Level 277 H Calcium Level 8.8 Magnesium Level 1.9 Medications Medications Current Medications IV Flush (NS 3 ml) 3 ml PER PROTOCOL IV ; Start 04/10/18 at 23:00 Ondansetron HCl (Zofran Inj) 4 mg Q6H PRN IV NAUSEA/VOMITING; Start 04/10/18 at 23:00 Acetaminophen (Tylenol Tab) 650 mg Q6H PRN PO .PAIN 1-3 OR TEMP Last administered on 04/12/18at 21:22; Admin Dose 650 MG; Start 04/10/18 at 23:00 Acetaminophen/ Hydrocodone Bitart ([place] (5/325)) 1 tab Q6H PRN PO .PAIN 4-6 Last administered on 04/11/18at 23:48; Admin Dose 1 TAB; Start 04/10/18 at 23:00 Diagnostic Test (Pha) (Accu-Chek) 1 ea 02 XX Last administered on 04/12/18at 02:06; Admin Dose 1 EA; Start 04/11/18 at 02:00 Insulin Aspart (Novolog Insulin Pen) NOVOLOG *MILD* ALGORITHM WITH MEALS BEDTIME SC Last administered on 04/12/18at 11:47; Admin Dose 3 UNIT; Start 04/11/18 at 07:50 Piperacillin Sod/ Tazobactam Sod 100 ml @ 200 mls/hr Q6 IVPB Last administered on 04/13/18at 05:55; Admin Dose 200 MLS/HR; Start 04/11/18 at 00:00 Miscellaneous Information 1 ea NOTE XX ; Start 04/10/18 at 23:00 Glucose (Glutose) 15 gm Q15M PRN PO DECREASED GLUCOSE; Start 04/10/18 at 23:00 Glucose (Glutose) 22.5 gm Q15M PRN PO DECREASED GLUCOSE; Start 04/10/18 at 23:00 Dextrose (D50w Syringe) 25 ml Q15M PRN IV DECREASED GLUCOSE; Start 04/10/18 at 23:00 Dextrose (D50w Syringe) 50 ml Q15M PRN IV DECREASED GLUCOSE; Start 04/10/18 at 23:00 Glucagon (Glucagen) 1 mg Q15M PRN IM DECREASED GLUCOSE; Start 04/10/18 at 23:00 Glucose (Glutose) 15 gm Q15M PRN BUCCAL DECREASED GLUCOSE; Start 04/10/18 at 23:00 Atorvastatin Calcium (Lipitor) 80 mg QHS PO Last administered on 04/12/18at 20:19; Admin Dose 80 MG; Start 04/11/18 at 21:00 Carvedilol (Coreg) 6.25 mg BID PO Last administered on 04/12/18at 20:21; Admin Dose 6.25 MG; Start 04/11/18 at 09:00 Lisinopril (Zestril) 5 mg DAILY PO ; Start 04/11/18 at 09:00 Sodium Chloride 1,000 ml @ 50 mls/hr Q20H IV Last administered on 04/13/18at 03:56; Admin Dose 50 MLS/HR; Start 04/11/18 at 20:00 Insulin Aspart (Novolog Insulin Pen) 12 unit WITH MEALS SC ; Start 04/12/18 at 17:55 Insulin Glargine (Lantus) 40 units DAILY@0800 SC ; Start 04/13/18 at 08:00 Hydromorphone HCl (Dilaudid) 1 mg Q3H PRN IV SEVERE PAIN LEVEL 7-10 Last administered on 04/13/18at 07:55; Admin Dose 1 MG; Start 04/12/18 at 14:00 LILIANE ESPINO MD Apr 13, 2018 08:06
[2018-04-13] MEDS: INSULIN GLARGINE [LANTus] (100 UNITS/ML) SYG SC SCH (09:08)
[2018-04-13] MEDS: INSULIN ASPART [NOVOLOG] 3 ML PEN SC SCH ×7 (09:10→21:26)
[2018-04-13] MEDS: LISINOPRIL 5 MG TAB PO SCH (09:15)
[2018-04-13] MEDS: HYDROCODONE/APAP (5/325) TAB PO PRN ×3 (09:21→21:41)
--- NOTE | 2018-04-13 10:44 | PN ---
Date/Time of Note Date/Time of Note DATE: 04/13/18 TIME: 10:41 Assessment/Plan VTE Prophylaxis Risk score (from Nsg)>0 risk: 8 SCD applied (from Nsg): Yes Pharmacological prophylaxis: other Lines/Catheters IV Catheter Type (from Nrsg): Peripheral IV Urinary Cath still in place: Yes Reason Cath still needed: urinary retention Assessment/Plan Hospital Course Assessment and plan: 52-year-old male presents with: Left scrotal abscess-Urology consultation appreciated, -per outside facility CT with iv contrast,, 6.5x2.1x3.7 cm mass; status post I&D postop day #1. -Continue IV antibiotics for now, follow-up final culture results -Pain control Coronary artery disease-Confirmed patient med list - continue home meds Diabetes mellitus: A1c was 11.5. Sugars in the high normal range presently -Continue current Lantus and sliding scale insulin, monitor sugars Hypertension: Stable -Continue home meds Prophylaxis: SCDs Result Diagram: 04/13/1844004/13/18 0441 Results 24hrs Laboratory Tests Test 04/12/18 11:39 04/12/18 16:18 04/12/18 19:14 04/12/18 20:17 Bedside Glucose 254 H 195 153 157 Test 04/13/18 04:41 04/13/18 09:04 White Blood Count 9.7 Red Blood Count 4.40 L Hemoglobin 13.1 L Hematocrit 39.2 L Mean Corpuscular 89.1 Volume Mean Corpuscular 29.8 Hemoglobin Mean Corpuscular 33.4 Hemoglobin Concent Red Cell 13.6 Distribution Width Platelet Count 286 Mean Platelet Volume 10.4 Immature 0.600 H Granulocytes % Neutrophils % 67.0 Lymphocytes % 23.9 Monocytes % 6.6 Eosinophils % 1.4 Basophils % 0.5 Nucleated Red Blood 0.0 Cells % Immature 0.060 H Granulocytes # Neutrophils # 6.5 Lymphocytes # 2.3 Monocytes # 0.6 Eosinophils # 0.1 Basophils # 0.1 Nucleated Red Blood 0.0 Cells # Sodium Level 138 Potassium Level 4.2 Chloride Level 101 Carbon Dioxide Level 26 Anion Gap 11 Blood Urea Nitrogen 10 Creatinine 0.42 L Est Glomerular > 60 Filtrat Rate mL/min Glucose Level 277 H Calcium Level 8.8 Magnesium Level 1.9 Bedside Glucose 234 H Subjective 24 Hr Interval Summary Free Text/Dictation Seen by urology team this morning. Still complaining of some pain symptoms. No fevers. Exam/Review of Systems Exam Vitals Vital Signs Date Temp Pulse Resp B/P (MAP) Pulse Ox O2 O2 Flow FiO2 Time Delivery Rate 04/13/18 98.7 19 128/62 96 07:31 (84) 04/13/18 64 04:47 04/12/18 Nasal 2.0 19:24 Cannula Intake and Output 04/12/18 04/12/18 04/13/18 1515:00 23:00 07:00 IntakeIntake Total 100 ml 1640 ml 450 ml OutputOutput Total 712 ml BalanceBalance 100 ml 928 ml 450 ml Results Results 24hrs Laboratory Tests Test 04/12/18 11:39 04/12/18 16:18 04/12/18 19:14 04/12/18 20:17 Bedside Glucose 254 H 195 153 157 Test 04/13/18 04:41 04/13/18 09:04 White Blood Count 9.7 Red Blood Count 4.40 L Hemoglobin 13.1 L Hematocrit 39.2 L Mean Corpuscular 89.1 Volume Mean Corpuscular 29.8 Hemoglobin Mean Corpuscular 33.4 Hemoglobin Concent Red Cell 13.6 Distribution Width Platelet Count 286 Mean Platelet Volume 10.4 Immature 0.600 H Granulocytes % Neutrophils % 67.0 Lymphocytes % 23.9 Monocytes % 6.6 Eosinophils % 1.4 Basophils % 0.5 Nucleated Red Blood 0.0 Cells % Immature 0.060 H Granulocytes # Neutrophils # 6.5 Lymphocytes # 2.3 Monocytes # 0.6 Eosinophils # 0.1 Basophils # 0.1 Nucleated Red Blood 0.0 Cells # Sodium Level 138 Potassium Level 4.2 Chloride Level 101 Carbon Dioxide Level 26 Anion Gap 11 Blood Urea Nitrogen 10 Creatinine 0.42 L Est Glomerular > 60 Filtrat Rate mL/min Glucose Level 277 H Calcium Level 8.8 Magnesium Level 1.9 Bedside Glucose 234 H Medications Medication Current Medications IV Flush (NS 3 ml) 3 ml PER PROTOCOL IV ; Start 04/10/18 at 23:00 Ondansetron HCl (Zofran Inj) 4 mg Q6H PRN IV NAUSEA/VOMITING; Start 04/10/18 at 23:00 Acetaminophen (Tylenol Tab) 650 mg Q6H PRN PO .PAIN 1-3 OR TEMP Last administered on 04/12/18at 21:22; Admin Dose 650 MG; Start 04/10/18 at 23:00 Acetaminophen/ Hydrocodone Bitart ([place] (5/325)) 1 tab Q6H PRN PO .PAIN 4-6 Last administered on 04/13/18at 09:21; Admin Dose 1 TAB; Start 04/10/18 at 23:00 Diagnostic Test (Pha) (Accu-Chek) 1 ea 02 XX Last administered on 04/12/18at 02:06; Admin Dose 1 EA; Start 04/11/18 at 02:00 Insulin Aspart (Novolog Insulin Pen) NOVOLOG *MILD* ALGORITHM WITH MEALS BEDTIME SC Last administered on 04/13/18 09:10; Admin Dose 3 UNIT; Start 04/11/18 at 07:50 Piperacillin Sod/ Tazobactam Sod 100 ml @ 200 mls/hr Q6 IVPB Last administered on 04/13/18at 05:55; Admin Dose 200 MLS/HR; Start 04/11/18 at 00:00 Miscellaneous Information 1 ea NOTE XX ; Start 04/10/18 at 23:00 Glucose (Glutose) 15 gm Q15M PRN PO DECREASED GLUCOSE; Start 04/10/18 at 23:00 Glucose (Glutose) 22.5 gm Q15M PRN PO DECREASED GLUCOSE; Start 04/10/18 at 23:00 Dextrose (D50w Syringe) 25 ml Q15M PRN IV DECREASED GLUCOSE; Start 04/10/18 at 23:00 Dextrose (D50w Syringe) 50 ml Q15M PRN IV DECREASED GLUCOSE; Start 04/10/18 at 23:00 Glucagon (Glucagen) 1 mg Q15M PRN IM DECREASED GLUCOSE; Start 04/10/18 at 23:00 Glucose (Glutose) 15 gm Q15M PRN BUCCAL DECREASED GLUCOSE; Start 04/10/18 at 23:00 Atorvastatin Calcium (Lipitor) 80 mg QHS PO Last administered on 04/12/18at 20:19; Admin Dose 80 MG; Start 04/11/18 at 21:00 Carvedilol (Coreg) 6.25 mg BID PO Last administered on 04/13/18at 09:14; Admin Dose 6.25 MG; Start 04/11/18 at 09:00 Lisinopril (Zestril) 5 mg DAILY PO Last administered on 04/13/18 09:15; Admin Dose 5 MG; Start 04/11/18 at 09:00 Sodium Chloride 1,000 ml @ 50 mls/hr Q20H IV Last administered on 04/13/18 03:56; Admin Dose 50 MLS/HR; Start 04/11/18 at 20:00 Insulin Aspart (Novolog Insulin Pen) 12 unit WITH MEALS SC Last administered on 04/13/18 09:12; Admin Dose 12 UNIT; Start 04/12/18 at 17:55 Insulin Glargine (Lantus) 40 units DAILY@0800 SC Last administered on 04/13/18 09:08; Admin Dose 40 UNITS; Start 04/13/18 at 08:00 Hydromorphone HCl (Dilaudid) 1 mg Q3H PRN IV SEVERE PAIN LEVEL 7-10 Last ad ministered on 04/13/18 07:55; Admin Dose 1 MG; Start 04/12/18 at 14:00 GERI REYES Apr 13, 2018 10:44
[2018-04-13 14:14] VITALS: BP 134/64; PULSE 78; RESP 19
[2018-04-13 20:57] VITALS: BP 111/54; PULSE 62; RESP 18
[2018-04-13] MEDS: ATORVASTATIN 40 MG TAB PO SCH (21:17)
[2018-04-14] MEDS: PIPER-TAZO 3.375 GM IV (PMX) 100 ML IVPB SCH ×3 (01:03→11:41)
[2018-04-14] MEDS: ACCU-CHEK XX SCH (01:03)
[2018-04-14 02:08] VITALS: BP 120/53; PULSE 66; RESP 18
[2018-04-14] MEDS: HYDROmorphONE 1 MG/ML SYG IV PRN ×4 (03:17→21:33)
[2018-04-14 07:19] VITALS: BP 110/53; PULSE 60; RESP 18
--- NOTE | 2018-04-14 08:03 | CONS ---
Consult Date/Type/Reason Admit Date/Time Apr 10, 2018 at 22:19 Initial Consult Date 04/11/18 Type of Consultation: Urology Reason for Consultation Left-sided scrotal abscess Requesting Provider: ARNAUD HANSON Date/Time of Note DATE: 04/14/18 TIME: 07:59 Subjective The patient is comfortable. Complains of pain at the time the abscess packing is changed Objective Vitals Vital Signs Date Temp Pulse Resp B/P (MAP) Pulse Ox O2 O2 Flow FiO2 Time Delivery Rate 04/14/18 97.8 60 18 110/53 90 07:19 (72) 04/12/18 Nasal 2.0 19:24 Cannula Intake and Output 04/13/18 04/13/18 04/14/18 1515:00 23:00 07:00 IntakeIntake Total 100 ml 970 ml 200 ml OutputOutput Total 2 ml BalanceBalance 100 ml 968 ml 200 ml Exam I did not change his packing. The nurses will do it after giving him pain medications. His did not learn how to change the dressing. She did not want to. Results/Medications Result Diagram: 04/13/18 0441 04/13/18 0441 Results 24 hrs Laboratory Tests Test 04/13/18 09:04 04/13/18 12:34 04/13/18 17:56 04/13/18 21:18 Bedside Glucose 234 H 236 H 221 H 283 H Test 04/14/18 01:03 Bedside Glucose 258 H Home Meds Active Scripts Hydrocodone Bit-Acetaminophen ([place]) 5-325 Mg Tablet, 1 TAB PO Q6H PRN for PAIN for 2 Days, #7 TAB 0 Refills Prov:KAYLA RUSSELL PA-C 08/05/15 Ibuprofen* (Motrin*) 600 Mg Tab, 600 MG PO Q6 for 7 Days, #30 TAB 0 Refills Prov:KAYLA RUSSELL PA-C 08/05/15 Reported Medications Atorvastatin* (Atorvastatin*) 40 Mg Tablet, 80 MG PO QHS, #30 TAB 11/27/15 Lisinopril* (Lisinopril*) 2.5 Mg Tablet, 5 MG PO DAILY, #30 TAB 11/27/15 Carvedilol* (Carvedilol*) 6.25 Mg Tablet, 6.25 MG PO BID, #60 TAB 10/4/16 Metformin Hcl* (Metformin Hcl*) 500 Mg Tablet, 500 MG PO BID, #90 TAB 11/27/15 Aspirin* (Aspirin* EC) 81 Mg Tablet.dr, 81 MG PO DAILY, TAB 11/27/15 Discontinued Reported Medications Tramadol Hcl* (Ultram*) 50 Mg Tablet, 50 MG PO BID, TAB 11/28/15 Clopidogrel Bisulfate (Clopidogrel) 75 Mg Tablet, 75 MG PO DAILY, #30 TAB 11/28/15 Folic Acid* (Folic Acid*) 1 Mg Tablet, 1 MG PO DAILY, TAB 11/27/15 Clopidogrel Bisulfate* (Clopidogrel Bisulfate*) 75 Mg Tablet, 75 MG PO DAILY, # 30 TAB 11/27/15 Medications Current Medications IV Flush (NS 3 ml) 3 ml PER PROTOCOL IV ; Start 04/10/18 at 23:00 Ondansetron HCl (Zofran Inj) 4 mg Q6H PRN IV NAUSEA/VOMITING; Start 04/10/18 at 23:00 Acetaminophen (Tylenol Tab) 650 mg Q6H PRN PO .PAIN 1-3 OR TEMP Last administered on 04/12/18at 21:22; Admin Dose 650 MG; Start 04/10/18 at 23:00 Acetaminophen/ Hydrocodone Bitart ([place] (5/325)) 1 tab Q6H PRN PO .PAIN 4-6 Last administered on 04/13/18at 21:41; Admin Dose 1 TAB; Start 04/10/18 at 23:00 Diagnostic Test (Pha) (Accu-Chek) 1 ea 02 XX Last administered on 04/14/18at 01:03; Admin Dose 1 EA; Start 04/11/18 at 02:00 Insulin Aspart (Novolog Insulin Pen) NOVOLOG *MILD* ALGORITHM WITH MEALS BEDTIME SC Last administered on 04/13/18at 21:26; Admin Dose 3 UNIT; Start 04/11/18 at 07:50 Piperacillin Sod/ Tazobactam Sod 100 ml @ 200 mls/hr Q6 IVPB Last administered on 04/14/18at 06:00; Admin Dose 200 MLS/HR; Start 04/11/18 at 00:00 Miscellaneous Information 1 ea NOTE XX ; Start 04/10/18 at 23:00 Glucose (Glutose) 15 gm Q15M PRN PO DECREASED GLUCOSE; Start 04/10/18 at 23:00 Glucose (Glutose) 22.5 gm Q15M PRN PO DECREASED GLUCOSE; Start 04/10/18 at 23:00 Dextrose (D50w Syringe) 25 ml Q15M PRN IV DECREASED GLUCOSE; Start 04/10/18 at 23:00 Dextrose (D50w Syringe) 50 ml Q15M PRN IV DECREASED GLUCOSE; Start 04/10/18 at 23:00 Glucagon (Glucagen) 1 mg Q15M PRN IM DECREASED GLUCOSE; Start 04/10/18 at 23:00 Glucose (Glutose) 15 gm Q15M PRN BUCCAL DECREASED GLUCOSE; Start 04/10/18 at 23:00 Atorvastatin Calcium (Lipitor) 80 mg QHS PO Last administered on 04/13/18at 21:17; Admin Dose 80 MG; Start 04/11/18 at 21:00 Carvedilol (Coreg) 6.25 mg BID PO Last administered on 04/13/18at 09:14; Admin Dose 6.25 MG; Start 04/11/18 at 09:00 Lisinopril (Zestril) 5 mg DAILY PO Last administered on 04/13/18at 09:15; Admin Dose 5 MG; Start 04/11/18 at 09:00 Insulin Aspart (Novolog Insulin Pen) 12 unit WITH MEALS SC Last administered on 04/13/18at 18:00; Admin Dose 12 UNIT; Start 04/12/18 at 17:55 Insulin Glargine (Lantus) 40 units DAILY@0800 SC Last administered on 04/13/18at 09:08; Admin Dose 40 UNITS; Start 04/13/18 at 08:00 Hydromorphone HCl (Dilaudid) 1 mg Q3H PRN IV SEVERE PAIN LEVEL 7-10 Last administered on 04/14/18at 06:01; Admin Dose 1 MG; Start 04/12/18 at 14:00 Assessment/Plan Hospital Course (Demo Recall) 52-year-old male has been having left side scrotal pain for about a week he had a small area that was painful and gradually got bigger and became very painful so he went to the emergency room at [facility]. He underwent a scrotal ultrasound and a CT scan of the abdomen and pelvis and that showed possible abscess lateral to the left testicle. The patient was transferred to [facility] [place] because of his insurance. Patient underwent incision and drainage of the abscess on April 12, 2018. The nursing staff have changed his packing. He is afebrile. His white count is normal He may be discharged home with home health to change his packing daily. He should be on antibiotic and Cipro is good for the next 10 days. The wound will heal gradually. He needs follow-up as outpatient. We will need an authorization from his insurance for the follow-up. GEN BERMUDEZ MD Apr 14, 2018 08:03
[2018-04-14] MEDS: LISINOPRIL 5 MG TAB PO SCH (08:45)
[2018-04-14] MEDS: INSULIN ASPART [NOVOLOG] 3 ML PEN SC SCH ×6 (08:47→20:37)
[2018-04-14] MEDS: INSULIN GLARGINE [LANTus] (100 UNITS/ML) SYG SC SCH ×2 (08:48→20:17)
[2018-04-14] MEDS: HYDROCODONE/APAP (5/325) TAB PO PRN ×2 (08:53→15:05)
[2018-04-14 14:09] VITALS: BP 139/60; PULSE 62; RESP 18
--- NOTE | 2018-04-14 15:54 | PN ---
Date/Time of Note Date/Time of Note DATE: 04/14/18 TIME: 15:49 Assessment/Plan VTE Prophylaxis Risk score (from Nsg)>0 risk: 2 SCD applied (from Nsg): Yes Pharmacological prophylaxis: NA/contraindicated Pharm contraindication: bleeding, surgical contra Lines/Catheters IV Catheter Type (from Nrsg): Saline Lock Urinary Cath still in place: No Assessment/Plan Assessment/Plan 1. Left scrotal abscess s/p I&D - Urology on board and appreciate recommendations. Will plan for follow up as outpatient and HH for wound care and packing changes - Continue on Cipro PO for 10 days - Per outside facility, CT with iv contrast, presence of 6.5x2.1x3.7 cm mass - Pain control 2. CAD - continue home medications 3. DM - A1c noted - Diabetic education consultation appreciated. Adjustments made to dosages of Metformin, Lantus, and Novolog. - ISS and accuchecks 4. Hypertension - stable 5. Disposition - If sugars remain stable, will d/c tomorrow - CM on board to assist with arrangements for follow up and HH wound care Result Diagram: 04/13/18 0441 04/13/18 0441 Results 24hrs Laboratory Tests Test 04/13/18 17:56 04/13/18 21:18 04/14/18 01:03 04/14/18 08:43 Bedside Glucose 221 H 283 H 258 H 234 H Test 04/14/18 12:48 Bedside Glucose 243 H Subjective 24 Hr Interval Summary Free Text/Dictation Patient is doing well and anxious to go home. Discussed need for adjustment of diabetic medications given high sugars while inhouse and need for better control. Will plan to d/c tomorrow if sugars improve and remain stable. Patient and family agreeable. Exam/Review of Systems Exam Vitals Vital Signs Date Temp Pulse Resp B/P (MAP) Pulse Ox O2 O2 Flow FiO2 Time Delivery Rate 04/14/18 98.3 62 18 139/60 94 14:09 (86) 04/12/18 Nasal 2.0 19:24 Cannula Intake and Output 04/13/18 04/13/18 04/14/18 1515:00 23:00 07:00 IntakeIntake Total 100 ml 970 ml 200 ml OutputOutput Total 2 ml BalanceBalance 100 ml 968 ml 200 ml Exam General: Patient is a pleasant male, no acute distress Neck: Supple Chest: Nontender Lungs: Clear to auscultation bilaterally no crackles rales or wheezing Heart: Normal S1-S2, Regular rhythm and rate. no murmurs Abdomen: Soft, obese, nontender, nondistended , bowel sounds are present. No guarding no rebound tenderness Extremities: Normal to inspection, no edema no cyanosis Results Results 24hrs Laboratory Tests Test 04/13/18 17:56 04/13/18 21:18 04/14/18 01:03 04/14/18 08:43 Bedside Glucose 221 H 283 H 258 H 234 H Test 04/14/18 12:48 Bedside Glucose 243 H Medications Medication Current Medications IV Flush (NS 3 ml) 3 ml PER PROTOCOL IV ; Start 04/10/18 at 23:00 Ondansetron HCl (Zofran Inj) 4 mg Q6H PRN IV NAUSEA/VOMITING; Start 04/10/18 at 23:00 Acetaminophen (Tylenol Tab) 650 mg Q6H PRN PO .PAIN 1-3 OR TEMP Last administer ed on 04/12/18at 21:22; Admin Dose 650 MG; Start 04/10/18 at 23:00 Acetaminophen/ Hydrocodone Bitart ([place] (5/325)) 1 tab Q6H PRN PO .PAIN 4-6 Last administered on 04/14/18at 15:05; Admin Dose 1 TAB; Start 04/10/18 at 23:00 Diagnostic Test (Pha) (Accu-Chek) 1 ea 02 XX Last administered on 04/14/18at 01:03; Admin Dose 1 EA; Start 04/11/18 at 02:00 Insulin Aspart (Novolog Insulin Pen) NOVOLOG *MILD* ALGORITHM WITH MEALS BEDTIME SC Last administered on 04/14/18at 12:50; Admin Dose 18 UNIT; Start 04/11/18 at 07:50 Miscellaneous Information 1 ea NOTE XX ; Start 04/10/18 at 23:00 Glucose (Glutose) 15 gm Q15M PRN PO DECREASED GLUCOSE; Start 04/10/18 at 23:00 Glucose (Glutose) 22.5 gm Q15M PRN PO DECREASED GLUCOSE; Start 04/10/18 at 23:00 Dextrose (D50w Syringe) 25 ml Q15M PRN IV DECREASED GLUCOSE; Start 04/10/18 at 23:00 Dextrose (D50w Syringe) 50 ml Q15M PRN IV DECREASED GLUCOSE; Start 04/10/18 at 23:00 Glucagon (Glucagen) 1 mg Q15M PRN IM DECREASED GLUCOSE; Start 04/10/18 at 23:00 Glucose (Glutose) 15 gm Q15M PRN BUCCAL DECREASED GLUCOSE; Start 04/10/18 at 23:00 Atorvastatin Calcium (Lipitor) 80 mg QHS PO Last administered on 04/13/18at 21:17; Admin Dose 80 MG; Start 04/11/18 at 21:00 Carvedilol (Coreg) 6.25 mg BID PO Last administered on 04/14/18at 08:44; Admin Dose 6.25 MG; Start 04/11/18 at 09:00 Lisinopril (Zestril) 5 mg DAILY PO Last administered on 04/14/18at 08:45; Admin Dose 5 MG; Start 04/11/18 at 09:00 Hydromorphone HCl (Dilaudid) 1 mg Q3H PRN IV SEVERE PAIN LEVEL 7-10 Last administered on 04/14/18at 11:40; Admin Dose 1 MG; Start 04/12/18 at 14:00 Insulin Aspart (Novolog Insulin Pen) 15 unit WITH MEALS SC ; Start 04/14/18 at 17:55 Insulin Glargine (Lantus) 25 units BID SC ; Start 04/14/18 at 21:00 Metformin HCl (Glucophage) 1,000 mg BID PO ; Start 04/14/18 at 21:00 Ciprofloxacin (Cipro) 500 mg BID@,18 PO ; Start 04/14/18 at 18:00; Stop 04/24/18 at 17:59 LEELEE COBIAN MD Apr 14, 2018 15:54
[2018-04-14] MEDS: CIPROFLOXACIN 500 MG TAB PO SCH (17:49)
[2018-04-14] MEDS: ATORVASTATIN 40 MG TAB PO SCH (20:14)
[2018-04-14] MEDS: metFORMIN 500 MG TAB PO SCH (20:14)
[2018-04-14 20:15] VITALS: BP 121/58; PULSE 62; RESP 18
[2018-04-15] VITALS: BP 112/53; PULSE 72; RESP 18
[2018-04-15] MEDS: ACCU-CHEK XX SCH (02:00)
[2018-04-15] MEDS: HYDROCODONE/APAP (5/325) TAB PO PRN (02:12)
[2018-04-15] MEDS: CIPROFLOXACIN 500 MG TAB PO SCH (05:54)
[2018-04-15 07:59] VITALS: BP 113/52; PULSE 65; RESP 18
[2018-04-15] MEDS: metFORMIN 500 MG TAB PO SCH (08:38)
[2018-04-15] MEDS: LISINOPRIL 5 MG TAB PO SCH (08:39)
[2018-04-15] MEDS: INSULIN ASPART [NOVOLOG] 3 ML PEN SC SCH ×4 (08:40→12:37)
[2018-04-15] MEDS: INSULIN GLARGINE [LANTus] (100 UNITS/ML) SYG SC SCH (08:42)
--- NOTE | 2018-04-15 08:57 | PN ---
Date/Time of Note Date/Time of Note DATE: 04/15/18 TIME: 08:57 Assessment/Plan VTE Prophylaxis Risk score (from Nsg)>0 risk: 1 SCD applied (from Nsg): No SCD contraindicated: low risk/ambulating Pharmacological prophylaxis: NA/contraindicated Pharm contraindication: low risk/ambulating Lines/Catheters IV Catheter Type (from Nrsg): Saline Lock Urinary Cath still in place: No Assessment/Plan Assessment/Plan 1. Left scrotal abscess s/p I&D - Urology on board and appreciate recommendations. Cleared for discharge home and will need to follow up as outpatient. HH for wound care being arranged by CM - Continue on Cipro PO until 04/24/18 - Per outside facility, CT with iv contrast, presence of 6.5x2.1x3.7 cm mass - Pain control 2. CAD - continue home medications 3. DM - A1c noted - Diabetic education consultation appreciated. Adjustments made to dosages of Metformin, Lantus, and Novolog. - ISS and accuchecks 4. Hypertension - stable 5. Disposition - Medically stable for discharge home Result Diagram: 04/13/18 0441 04/13/18 0441 Results 24hrs Laboratory Tests Test 04/14/18 12:48 04/14/18 17:48 04/14/18 20:12 04/15/18 05:59 Bedside Glucose 243 H 223 H 175 195 Test 04/15/18 08:31 Bedside Glucose 165 Subjective 24 Hr Interval Summary Free Text/Dictation Patient is doing well and denies any acute issues. No overnight events. Exam/Review of Systems Exam Vitals Vital Signs Date Temp Pulse Resp B/P (MAP) Pulse Ox O2 O2 Flow FiO2 Time Delivery Rate 04/15/18 98.0 65 18 113/52 92 Room Air 07:59 (72) 04/12/18 2.0 19:24 Intake and Output 04/14/18 04/14/18 04/15/18 1414:59 22:59 06:59 IntakeIntake Total 340 ml 300 ml 800 ml BalanceBalance 340 ml 300 ml 800 ml Exam General: Patient is a pleasant male, no acute distress Chest: Nontender Lungs: Clear to auscultation bilaterally no crackles rales or wheezing Heart: Normal S1-S2, Regular rhythm and rate. no murmurs Abdomen: Soft, obese, nontender, nondistended , bowel sounds are present. No guarding no rebound tenderness Extremities: Normal to inspection, no edema no cyanosis Results Results 24hrs Laboratory Tests Test 04/14/18 12:48 04/14/18 17:48 04/14/18 20:12 04/15/18 05:59 Bedside Glucose 243 H 223 H 175 195 Test 04/15/18 08:31 Bedside Glucose 165 Medications Medication Current Medications IV Flush (NS 3 ml) 3 ml PER PROTOCOL IV ; Start 04/10/18 at 23:00 Ondansetron HCl (Zofran Inj) 4 mg Q6H PRN IV NAUSEA/VOMITING; Start 04/10/18 at 23:00 Acetaminophen (Tylenol Tab) 650 mg Q6H PRN PO .PAIN 1-3 OR TEMP Last administered on 04/12/18at 21:22; Admin Dose 650 MG; Start 04/10/18 at 23:00 Acetaminophen/ Hydrocodone Bitart ([place] (5/325)) 1 tab Q6H PRN PO .PAIN 4-6 Last administered on 04/15/18at 02:12; Admin Dose 1 TAB; Start 04/10/18 at 23:00 Diagnostic Test (Pha) (Accu-Chek) 1 ea 02 XX Last administered on 04/14/18at 01:03; Admin Dose 1 EA; Start 04/11/18 at 02:00 Insulin Aspart (Novolog Insulin Pen) NOVOLOG *MILD* ALGORITHM WITH MEALS BEDT RICKIE SC Last administered on 04/15/18at 08:40; Admin Dose 1 UNIT; Start 04/11/18 at 07:50 Miscellaneous Information 1 ea NOTE XX ; Start 04/10/18 at 23:00 Glucose (Glutose) 15 gm Q15M PRN PO DECREASED GLUCOSE; Start 04/10/18 at 23:00 Glucose (Glutose) 22.5 gm Q15M PRN PO DECREASED GLUCOSE; Start 04/10/18 at 23:00 Dextrose (D50w Syringe) 25 ml Q15M PRN IV DECREASED GLUCOSE; Start 04/10/18 at 23:00 Dextrose (D50w Syringe) 50 ml Q15M PRN IV DECREASED GLUCOSE; Start 04/10/18 at 23:00 Glucagon (Glucagen) 1 mg Q15M PRN IM DECREASED GLUCOSE; Start 04/10/18 at 23:00 Glucose (Glutose) 15 gm Q15M PRN BUCCAL DECREASED GLUCOSE; Start 04/10/18 at 23:00 Atorvastatin Calcium (Lipitor) 80 mg QHS PO Last administered on 04/14/18 20:14; Admin Dose 80 MG; Start 04/11/18 at 21:00 Carvedilol (Coreg) 6.25 mg BID PO Last administered on 04/15/18 08:39; Admin Dose 6.25 MG; Start 04/11/18 at 09:00 Lisinopril (Zestril) 5 mg DAILY PO Last administered on 04/15/18 08:39; Admin Dose 5 MG; Start 04/11/18 at 09:00 Hydromorphone HCl (Dilaudid) 1 mg Q3H PRN IV SEVERE PAIN LEVEL 7-10 Last administered on 04/14/18 21:33; Admin Dose 1 MG; Start 04/12/18 at 14:00 Insulin Aspart (Novolog Insulin Pen) 15 unit WITH MEALS SC Last administered on 04/15/18 08:41; Admin Dose 15 UNIT; Start 04/14/18 at 17:55 Insulin Glargine (Lantus) 25 units BID SC Last administered on 04/15/18 08:42; Admin Dose 25 UNITS; Start 04/14/18 at 21:00 Metformin HCl (Glucophage) 1,000 mg BID PO Last administered on 04/15/18 08:38; Admin Dose 1,000 MG; Start 04/14/18 at 21:00 Ciprofloxacin (Cipro) 500 mg BID@18 PO Last administered on 04/15/18 05:54; Admin Dose 500 MG; Start 04/14/18 at 18:00; Stop 04/24/18 at 17:59 LEELEE COBIAN MD Apr 15, 2018 08:57
[2018-04-15] MEDS ORDERED: CIPR500T4 PO (11:21)
[2018-04-15] MEDS ORDERED: METF-849 PO (11:21)
[2018-04-15] MEDS ORDERED: NOVO3I SC (11:21)
[2018-04-15] MEDS ORDERED: LACT1CAP28 PO (11:21)
[2018-04-15] MEDS ORDERED: NEED-135 MC (11:21)
[2018-04-15] MEDS ORDERED: INSU100I33 SC (11:21)
--- NOTE | 2018-04-15 11:26 | PDOCDIS ---
Discharge Instructions DIAGNOSIS Discharge Diagnosis 1. Left scrotal abscess s/p I&D 2. CAD 3. DM 4. Hypertension CONDITION [id number] Patient Condition: [id number] Stable HOME CARE INSTRUCTIONS: [id number] Diet Instructions: Neiue6x Regular ACTIVITY: [id number] Activity Restrictions: [id number] Slowly Increase Activity [id number] Bathing Restrictions: [id number] Shower FOLLOW UP/APPOINTMENTS Follow-up Plan 1. Follow up with your primary care physician in 1-2 weeks 2. Follow up with Dr. Hilton in 1 week 3. Continue on Cipro 500mg twice a day until you finish the prescription 4. Take Lantus 25 units in the am and at bedtime 5. You will need to use Novolog 15units before meals 6. Your dose of Metformin was increased to 1000mg 7. Continue to check your sugars daily and keep a log to bring to your Primary care physician 8. You will have home health nurses come to your home to help with wound care and dressing changes 9. If symptoms worsen, please go to your nearest emergency department REFERRALS Other Referrals Bairon Hilton MD Specialty Urology Comments Office Address [id number] [facility] [address] [facility] [address] [place] [address] Office LEELEE COBIAN MD Apr 15, 2018 11:26
[2018-04-15] MEDS ORDERED: HYDR-3601 PO (11:39)
[2018-04-15] MEDS ORDERED: LACTOBACILLUS RHAMNOSUS CAP PO SCH (11:40)
[2018-04-15] MEDS ORDERED: INSU100I12 SQ (13:07)
[2018-04-15] MEDS: HYDROmorphONE 1 MG/ML SYG IV PRN (13:53)
--- NOTE | 2018-04-15 13:57 | CONS ---
Assessment/Plan Assessment/Plan Hospital Course (Demo Recall) Scrotal abscess status post I&D Coronary artery disease with history of [place] 3 years ago Preserved ejection fraction Hypertension Diabetes Obesity Dyslipidemia -Blood pressure trend overall remained stable -Continue statin and beta-marilyn if no contraindication -Restart aspirin when okay by our surgery colleague Consultation Date/Type/Reason Admit Date/Time Apr 10, 2018 at 22:19 Initial Consult Date 04/11/18 Type of Consult Cardiology Requesting Provider: ARNAUD HANSON Date/Time of Note DATE: 04/15/18 TIME: 13:54 24 HR Interval Summary Free Text/Dictation Denies current shortness of breath, chest pain or palpitations Exam/Review of Systems Vital Signs Vitals Vital Signs Date Temp Pulse Resp B/P (MAP) Pulse Ox O2 O2 Flow FiO2 Time Delivery Rate 04/15/18 98.0 65 18 113/52 92 Room Air 07:59 (72) 04/12/18 2.0 19:24 Intake and Output 04/14/18 04/14/18 04/15/18 1515:00 23:00 07:00 IntakeIntake Total 340 ml 300 ml 800 ml BalanceBalance 340 ml 300 ml 800 ml Exam Constitutional: alert, oriented (Obese, no apparent distress) Head: normocephalic Respiratory: other (Coarse breath sounds bilaterally, no wheezing) Cardiovascular: regular rate and rhythm (S1-S2 heard) Gastrointestinal: soft, non-tender, bowel sounds Extremities: other (No significant edema) Labs Result Diagram: 04/13/18 0441 04/13/18 0441 Results 24hrs Laboratory Tests Test 04/14/18 17:48 04/14/18 20:12 04/15/18 05:59 04/15/18 08:31 Bedside Glucose 223 H 175 195 165 Test 04/15/18 12:33 Bedside Glucose 146 Medications Medications Current Medications IV Flush (NS 3 ml) 3 ml PER PROTOCOL IV ; Start 04/10/18 at 23:00 Ondansetron HCl (Zofran Inj) 4 mg Q6H PRN IV NAUSEA/VOMITING; Start 04/10/18 at 23:00 Acetaminophen (Tylenol Tab) 650 mg Q6H PRN PO .PAIN 1-3 OR TEMP Last administered on 04/12/18at 21:22; Admin Dose 650 MG; Start 04/10/18 at 23:00 Acetaminophen/ Hydrocodone Bitart ([place] (5/325)) 1 tab Q6H PRN PO .PAIN 4-6 Last administered on 04/15/18at 02:12; Admin Dose 1 TAB; Start 04/10/18 at 23:00 Diagnostic Test (Pha) (Accu-Chek) 1 ea 02 XX Last administered on 04/14/18at 01:03; Admin Dose 1 EA; Start 04/11/18 at 02:00 Insulin Aspart (Novolog Insulin Pen) NOVOLOG *MILD* ALGORITHM WITH MEALS BEDTIME SC Last administered on 04/15/18at 12:36; Admin Dose 1 UNIT; Start 04/11/18 at 07:50 Miscellaneous Information 1 ea NOTE XX ; Start 04/10/18 at 23:00 Glucose (Glutose) 15 gm Q15M PRN PO DECREASED GLUCOSE; Start 04/10/18 at 23:00 Glucose (Glutose) 22.5 gm Q15M PRN PO DECREASED GLUCOSE; Start 04/10/18 at 23:00 Dextrose (D50w Syringe) 25 ml Q15M PRN IV DECREASED GLUCOSE; Start 04/10/18 at 23:00 Dextrose (D50w Syringe) 50 ml Q15M PRN IV DECREASED GLUCOSE; Start 04/10/18 at 23:00 Glucagon (Glucagen) 1 mg Q15M PRN IM DECREASED GLUCOSE; Start 04/10/18 at 23:00 Glucose (Glutose) 15 gm Q15M PRN BUCCAL DECREASED GLUCOSE; Start 04/10/18 at 23:00 Atorvastatin Calcium (Lipitor) 80 mg QHS PO Last administered on 04/14/18at 20:14; Admin Dose 80 MG; Start 04/11/18 at 21:00 Carvedilol (Coreg) 6.25 mg BID PO Last administered on 04/15/18at 08:39; Admin Dose 6.25 MG; Start 04/11/18 at 09:00 Lisinopril (Zestril) 5 mg DAILY PO Last administered on 04/15/18at 08:39; Admin Dose 5 MG; Start 04/11/18 at 09:00 Hydromorphone HCl (Dilaudid) 1 mg Q3H PRN IV SEVERE PAIN LEVEL 7-10 Last administered on 04/14/18at 21:33; Admin Dose 1 MG; Start 04/12/18 at 14:00 Insulin Aspart (Novolog Insulin Pen) 15 unit WITH MEALS SC Last administered on 04/15/18at 12:37; Admin Dose 15 UNIT; Start 04/14/18 at 17:55 Insulin Glargine (Lantus) 25 units BID SC Last administered on 04/15/18at 08:42; Admin Dose 25 UNITS; Start 04/14/18 at 21:00 Metformin HCl (Glucophage) 1,000 mg BID PO Last administered on 04/15/18at 08:38; Admin Dose 1,000 MG; Start 04/14/18 at 21:00 Ciprofloxacin (Cipro) 500 mg BID@06,18 PO Last administered on 04/15/18at 05:54; Admin Dose 500 MG; Start 04/14/18 at 18:00; Stop 04/24/18 at 17:59 Lactobacillus Acidophilus/ Rhamnosus (Culturelle) 1 cap WITH MEALS PO Last administered on 04/15/18at 12:34; Admin Dose 1 CAP; Start 04/15/18 at 11:40 Lambert Kelsey DO Apr 15, 2018 13:57
--- NOTE | 2018-04-15 14:43 | PDOCDIS ---
Discharge Instructions DIAGNOSIS Discharge Diagnosis 1. Left scrotal abscess s/p I&D 2. CAD 3. DM 4. Hypertension CONDITION [id number] Patient Condition: [id number] Stable HOME CARE INSTRUCTIONS: [id number] Diet Instructions: Mtygg7v Regular ACTIVITY: [id number] Activity Restrictions: Tictf2c Slowly Increase Activity [id number] Bathing Restrictions: Phhic9a Shower FOLLOW UP/APPOINTMENTS Follow-up Plan 1. Follow up with your primary care physician in 1-2 weeks 2. Follow up with Dr. Hilton in 1 week 3. Continue on Cipro 500mg twice a day until you finish the prescription 4. Take Lantus 25 units in the am and at bedtime 5. You will need to use Insulin Lispro 15units before meals 6. Your dose of Metformin was increased to 1000mg 7. Continue to check your sugars daily and keep a log to bring to your Primary care physician 8. You will have home health nurses come to your home to help with wound care and dressing changes 9. If symptoms worsen, please go to your nearest emergency department LEELEE COBIAN MD Apr 15, 2018 14:43
--- NOTE | 2018-04-15 17:43 | DS ---
Date/Time of Note Date/Time of Note DATE: 04/15/18 TIME: 17:42 Discharge Summary Admission/Discharge Info Admit Date/Time Apr 10, 2018 at 22:19 Discharge Date/Time Apr 15, 2018 at 15:01 Discharge Diagnosis 1. Left scrotal abscess s/p I&D 2. CAD 3. DM 4. Hypertension Patient Condition: Stable Consults Urology- Dr. Hilton Procedures Operation/Procedure Performed Incision and drainage of left side scrotal abscess Hx of Present Illness Patient is a male with a past medical history significant for [place], coronary artery disease, diabetes mellitus, dyslipidemia who presents to [facility] as a transfer from outside facility. She did went to outside facility ER due to testicular pain and was diagnosed with CT with IV contrast there with an extratesticular abscess adjacent to the left testicle. Patient states that this has been there for approximately 1 week and has been worsening. Patient states it started off as a small pimple and then continue to grow and get hard. Patient has no issues with urination at this time. 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 Patient denies chest pain, shortness of breath, nausea, vomiting, abdominal pain, leg pain Hospital Course Patient was evaluated by Urology who planned for I&D once Cardiology clearance was obtained. Cardiology cleared patient for intervention and patient tolerated surgical procedure well. He was started on IV antibiotics and transitioned to PO with no issues. Patient was seen by staff educator for management of hyperglycemia. Patient was started on Lantus and Lispro with better glucose control. CM made arrangements for home health with wound care. Patients overall condition remained stable and patient was discharged home in good condition. Home Meds Active Scripts Pen Needle, Diabetic,Disp Unit (UNIFINE PENTIPS PLUS) 1 Each Dis.needle, EACH ACHS A, #200 9 Refills Prov:LEELEE COBIAN MD 04/15/18 Insulin Lispro (Humalog Kwikpen U-100) 100 Unit/1 Ml Insuln.pen, 15 UNIT SQ WITH MEALS for 30 Days, #10 EA 9 Refills Prov:LEELEE COBIAN MD 04/15/18 Hydrocodone Bit-Acetaminophen (Hydrocodone Bit-APAP) 5-325MG Tablet, 1 TAB PO Q6 H PRN for .PAIN 4-6 for 5 Days, #20 TAB Prov:LEELEE COBIAN MD 04/15/18 [place], Insulin Disposable ([place] Pen Needle) 1 Each Dis.needle, EACH ACHS A, #120 9 Refills Prov:LEELEE COBIAN MD 04/15/18 Insulin Glargine,Hum.rec.anlog (Basaglar Kwikpen U-100) 100 Unit/1 Ml Insuln.pen, 25 UNIT SC BID for 30 Days, #10 EA 6 Refills Prov:LEELEE COBIAN MD 04/15/18 Metformin* (Glucophage*) 500 Mg Tab, 1000 MG PO BID for 30 Days, #60 TAB 6 Refills Prov:LEELEE COBIAN MD 04/15/18 Lactobacillus Rhamnosus GG (Culturelle) 1 Each Capsule, 1 CAP PO WITH MEALS for 30 Days, #90 CAP Prov:LEELEE COBIAN MD 04/15/18 Ciprofloxacin Hcl* (Ciprofloxacin Hcl*) 500 Mg Tablet, 500 MG PO BID@06,18 for 9 Days, #18 TAB Prov:LEELEE COBIAN MD 04/15/18 Hydrocodone Bit-Acetaminophen ([place]) 5-325 Mg Tablet, 1 TAB PO Q6H PRN for PAIN for 2 Days, #7 TAB 0 Refills Prov:KAYLA RUSSELL PA-C 08/05/15 Reported Medications Atorvastatin* (Atorvastatin*) 40 Mg Tablet, 80 MG PO QHS, #30 TAB 11/27/15 Lisinopril* (Lisinopril*) 2.5 Mg Tablet, 5 MG PO DAILY, #30 TAB 11/27/15 Carvedilol* (Carvedilol*) 6.25 Mg Tablet, 6.25 MG PO BID, #60 TAB 11/27/15 Aspirin* (Aspirin* EC) 81 Mg Tablet.dr, 81 MG PO DAILY, TAB 11/27/15 Discontinued Reported Medications Metformin Hcl* (Metformin Hcl*) 500 Mg Tablet, 500 MG PO BID, #90 TAB 11/27/15 Tramadol Hcl* (Ultram*) 50 Mg Tablet, 50 MG PO BID, TAB 11/28/15 Clopidogrel Bisulfate (Clopidogrel) 75 Mg Tablet, 75 MG PO DAILY, #30 TAB 11/28/15 Folic Acid* (Folic Acid*) 1 Mg Tablet, 1 MG PO DAILY, TAB 11/27/15 Clopidogrel Bisulfate* (Clopidogrel Bisulfate*) 75 Mg Tablet, 75 MG PO DAILY, #30 TAB 11/27/15 Discontinued Scripts Ibuprofen* (Motrin*) 600 Mg Tab, 600 MG PO Q6 for 7 Days, #30 TAB 0 Refills Prov:KAYLA RUSSELL PA-C 08/05/15 Follow-up Plan 1. Follow up with your primary care physician in 1-2 weeks 2. Follow up with Dr. Hilton in 1 week 3. Continue on Cipro 500mg twice a day until you finish the prescription 4. Take Lantus 25 units in the am and at bedtime 5. You will need to use Insulin Lispro 15units before meals 6. Your dose of Metformin was increased to 1000mg 7. Continue to check your sugars daily and keep a log to bring to your Primary care physician 8. You will have home health nurses come to your home to help with wound care and dressing changes 9. If symptoms worsen, please go to your nearest emergency department Primary Care Provider Not On Staff Doctor Time spent on discharge: > 30 minutes Pending Labs Laboratory Tests Test 04/14/18 17:48 04/14/18 20:12 04/15/18 05:59 04/15/18 08:31 Bedside 223 175 195 165 Glucose mg/dL (70-220) mg/dL (70-220) mg/dL (70-220) mg/dL (70-220) Test 04/15/18 12:33 Bedside 146 Glucose mg/dL (70-220) LEELEE COBIAN MD Apr 15, 2018 17:43
[2018-04-15] MEDS ORDERED: [UNRECOGNIZED DRUG - OTHER] MC (17:46)
== END 2018-04-15 15:01 | disposition home health service (06) | DRG 728 ==
LOC: MS1 22:19
PROVIDERS: ADMIT Hospitalist; ATTEND Internal Medicine
PROC: 0HDAXZZ Extraction of Inguinal Skin, External Approach (ICD-10-PCS; 2018-04-12)
PROC: 0V950ZX Drainage of Scrotum, Open Approach, Diagnostic (ICD-10-PCS; principal; 2018-04-12 17:30)
DX: N49.2 Inflammatory disorders of scrotum (principal); Z68.41 Body mass index [BMI] 40.0-44.9, adult; I25.10 Atherosclerotic heart disease of native coronary artery without angina pectoris; E11.8 Type 2 diabetes mellitus with unspecified complications; I11.9 Hypertensive heart disease without heart failure; E78.5 Hyperlipidemia, unspecified; E11.65 Type 2 diabetes mellitus with hyperglycemia; L73.2 Hidradenitis suppurativa; L40.9 Psoriasis, unspecified; E66.9 Obesity, unspecified; B96.89 Other specified bacterial agents as the cause of diseases classified elsewhere; F17.290 Nicotine dependence, other tobacco product, uncomplicated; Z79.4 Long term (current) use of insulin; Z79.82 Long term (current) use of aspirin; I25.2 Old myocardial infarction; Z95.5 Presence of coronary angioplasty implant and graft; Z87.891 Personal history of nicotine dependence
CPT/HCPCS: 71045; 80048; 80053; 82947; 82962; 83036; 83735; 85025; 85610; 85730; 87070; 87075; 87086; 87102; 93005; 93306; J1170; J1815; J2250; J2270; J2405; J2543; J3010; J7030

== ENCOUNTER 2018-04-26 12:36 | Emergency (ER) | payer SELFPAY ==
[~2018-04-26] VITALS: Ht 180.3 cm; Wt 136.4 kg
[~2018-04-26 12:36] MED LIST changes: +CIPR500T4 PO; -CLOP75TA19 PO; -CLOP75TA27 PO; -FOLI-49 PO; +HYDR-3601 PO; -IBUP-1542 PO; +INSU100I12 SQ; +INSU100I33 SC; +LACT1CAP28 PO; +METF-849 PO; -METF500T24 PO; +NEED-135 MC; -TRAM50TA PO; +[UNRECOGNIZED DRUG - OTHER] MC
[2018-04-26 12:43] VITALS: Ht 180.3 cm; Wt 136.4 kg
== END 2018-04-26 15:56 | disposition left against medical advice (07) ==
LOC: E/R 12:36
DX: Z53.21 Procedure and treatment not carried out due to patient leaving prior to being seen by health care provider (principal)